=== PATIENT | female | born 2000 | race Caucasian/White ===

== ENCOUNTER 2024-03-01 04:49 | Outpatient (CLI) | payer OTHER | END 2024-03-01 23:38 | disposition critical access hospital (66) | LOC: EMS 04:49 | DX: R06.82 Tachypnea, not elsewhere classified (principal) | CPT/HCPCS: A0425; A0429 ==

== ENCOUNTER 2024-03-01 05:09 | Inpatient (IN) | payer OTHER ==
[2024-03-01] MEDS: LIDOCAINE VISCOUS 2% 15 ML UDC MM STA (05:26)
[2024-03-01] MEDS: MAG HYDROX/AL HYDROX/SIMETH 30 ML UDC PO STA (05:26)
[2024-03-01 05:27] LABS: BASOPHILS # (AUTO) 0.1 10^3/uL (0.0-0.1); BASOPHILS % (AUTO) 0.5 %; EOSINOPHILS # (AUTO) 0.1 10^3/uL (0.0-0.7); EOSINOPHILS % (AUTO) 0.3 %; HGB - HEMOGLOBIN 15.5 g/dL (12.0-16.0); LYMPHOCYTES # (AUTO) 4.6 10^3/uL (1.5-3.5); LYMPHOCYTES % (AUTO) 19.8 %; MEAN CORPUSCULAR HEMOGLOBIN 31.3 pg (27.0-31.0); MEAN CORPUSCULAR HGB CONC 32.3 g/dL (32.0-36.0); MEAN CORPUSCULAR VOLUME 96.8 fL (81.0-99.0); MEAN PLATELET VOLUME 9.6 fL (7.9-10.8); MONOCYTES # (AUTO) 1.4 10^3/uL (0.0-1.0); MONOCYTES % (AUTO) 5.9 %; NEUTROPHILS # (AUTO) 16.7 10^3/uL (1.5-6.6); PLT - PLATELET COUNT 530 10^3/uL (130-450); RED BLOOD COUNT 4.96 10^6/uL (4.20-5.40); RED CELL DISTRIBUTION WIDTH 13.8 % (12.0-15.0); WHITE BLOOD COUNT 23.2 x10^3/uL (4.8-10.8)
--- NOTE | 2024-03-01 05:30 | ED Physician Documentation ---
PD HPI DYSPNEA - Stated complaint Stated Complaint: SOA - Chief complaint Chief Complaint: Resp - History obtained from History obtained from: Patient - Additional information Additional information: 23-year-old female with PMH T2DM on metformin presents by EMS from home for shortness of breath that began just prior to arrival. Patient states that she has had several days of heartburn that she attributes to eating too much pizza after running a marathon. Denies use of hormonal control, denies history of blood clots. Denies recent surgeries or prolonged immobilizations Review of Systems Constitutional: denies: Fever, Chills Cardiac: reports: Chest pain / pressure. denies: Palpitations, Calf pain Respiratory: reports: Dyspnea. denies: Cough, Wheezing GI: denies: Abdominal Pain, Nausea, Vomiting Musculoskeletal: denies: Neck pain, Back pain, Extremity pain Neurologic: denies: Generalized weakness, Focal weakness, Numbness PD PAST MEDICAL HISTORY - Allergies Allergies/Adverse Reactions: Allergies Allergy/AdvReac Type Severity Reaction Status Date / Time No Known Drug Allergies Allergy Verified 03/01/24 05:21 PD ED PE NORMAL - Vitals Vital signs reviewed: Yes - General General: Alert and oriented X 3, Well developed/nourished - Cardiac Cardiac: Strong equal pulses, Other (tachycardia) - Respiratory Respiratory: Clear bilaterally, Other (tachypnea, speaking in complete sentences) - Abdomen Abdomen: Soft, Non tender, Non distended - Derm Derm: Normal color, Warm and dry, No rash - Extremities Extremities: No deformity, No tenderness to palpate, Normal ROM s pain, No edema, No calf tenderness / cord - Neuro Neuro: Alert and oriented X 3, photographic process screen maker 2-12 intact, No motor deficit, Normal speech Results - Vitals Vitals: Vital Signs - 24 hr 03/01/24 03/01/24 05:16 06:30 Temperature 36.6 C Heart Rate 102 H 104 H Respiratory 36 H 33 H Rate Blood Pressure 164/126 H 154/88 H O2 Saturation 100 100 If not protocol 1 : Oxygen Flow, liters/minute Oxygen O2 Source Nasal cannula - Labs Labs: Laboratory Tests 03/01/24 03/01/24 03/01/24 05:05 05:20 05:20 WBC 23.2 H RBC 4.96 Hgb 15.5 Hct 48.0 H MCV 96.8 MCH 31.3 H MCHC 32.3 RDW 13.8 Plt Count 530 H MPV 9.6 Neut # (Auto) 16.7 H Lymph # (Auto) 4.6 H Adair # (Auto) 1.4 H Eos # (Auto) 0.1 Baso # (Auto) 0.1 Absolute Nucleated RBC 0.00 Band Neuts % (Manual) Not Reportable Abnorm Lymph % (Manual) Not Reportable Nucleated RBC % 0.0 Neutrophils # (Manual) Not Reportable Lymphocytes # (Manual) Not Reportable Monocytes # (Manual) Not Reportable Eosinophils # (Manual) Not Reportable Basophils # (Manual) Not Reportable Differential Comment MANUAL=AUTO DIFF Platelet Estimate INCREASED (>450,000) RBC Morph Micro Appear NORMAL APPEARANCE PT INR D-Dimer VBG pH VBG pCO2 VBG pO2 VBG HCO3 VBG Total CO2 VBG O2 Saturation VBG Base Excess Sodium 133 L Potassium 3.8 Chloride 106 Carbon Dioxide 3 L* Anion Gap 24.0 H BUN 8 Creatinine 0.8 Estimated GFR (MDRD) 88 L Glucose 432 H Calcium 8.7 Total Bilirubin 0.5 AST 13 ALT 11 Alkaline Phosphatase 109 Troponin I High Sens Total Protein 7.5 Albumin 4.5 Globulin 3.0 Albumin/Globulin Ratio 1.5 Serum HCG, Qual NEGATIVE Serum Ketones MODERATE H 03/01/24 03/01/24 03/01/24 05:20 05:57 06:05 WBC RBC Hgb Hct MCV MCH MCHC RDW Plt Count MPV Neut # (Auto) Lymph # (Auto) Adair # (Auto) Eos # (Auto) Baso # (Auto) Absolute Nucleated RBC Band Neuts % (Manual) Abnorm Lymph % (Manual) Nucleated RBC % Neutrophils # (Manual) Lymphocytes # (Manual) Monocytes # (Manual) Eosinophils # (Manual) Basophils # (Manual) Differential Comment Platelet Estimate RBC Morph Micro Appear PT 12.1 INR 1.1 D-Dimer > 1050.0 H VBG pH 6.898 L* VBG pCO2 15.6 L VBG pO2 75.1 H VBG HCO3 3.0 L VBG Total CO2 3.5 L VBG O2 Saturation 91.0 H VBG Base Excess -28.8 L Sodium Potassium Chloride Carbon Dioxide Anion Gap BUN Creatinine Estimated GFR (MDRD) Glucose Calcium Total Bilirubin AST ALT Alkaline Phosphatase Troponin I High Sens 6.5 Total Protein Albumin Globulin Albumin/Globulin Ratio Serum HCG, Qual Serum Ketones PD Medical Decision Making - ED course Complexity details: reviewed results, re-evaluated patient, considered differential, d/w patient ED course: Patient presenting for shortness of breath and heartburn. She is tachypneic, breathing approximately 30+ times per minute, but speaking complete sentences, lungs are clear to auscultation bilaterally. Accu-Chek 400. Laboratory work shows WBC count 23, platelets 530, CO2 3, anion gap 24. Patient likely in DKA. Patient states that she is on metformin but it has been "a long time" since her A1c has been checked. She states she has never been on insulin. D-dimer greater than 1000. I do believe that this is most likely related to patient's DKA, however patient is saying that her symptoms only began this morning. With the severity of her acidosis, elevated white blood cell count, it is unlikely that the symptoms just began this morning. CT angio ordered and pending at time of signout. Care of patient signed out to morning physician at 0700 Departure - Departure Clinical Impression: DKA (diabetic ketoacidosis) Condition: Fair Forms: PCP List
[2024-03-01 05:49] LABS: HCG,QUALITATIVE BLOOD NEGATIVE
[2024-03-01] MEDS: SODIUM CHLORIDE 0.9% 1,000 ML IV STA ×3 (05:51→07:50)
[2024-03-01 05:56] LABS: ALBUMIN 4.5 g/dL (3.2-5.5); ALBUMIN/GLOBULIN RATIO 1.5 (1.0-2.2); ALKALINE PHOSPHATASE 109 IU/L (42-121); ALT ALANINE AMINOTRANSFERASE 11 IU/L (10-60); AST ASPARTATE AMINOTRANSFERASE 13 IU/L (10-42); BILIRUBIN,TOTAL 0.5 mg/dL (0.2-1.0); BUN - BLOOD UREA NITROGEN 8 mg/dL (6-20); CALCIUM 8.7 mg/dL (8.5-10.3); CARBON DIOXIDE - CO2 3 mmol/L (21-32); CHLORIDE 106 mmol/L (101-111); CREATININE 0.8 mg/dL (0.6-1.3); GFR - MDRD 88 (>89); GLUCOSE 432 mg/dL (74-104); POTASSIUM 3.8 mmol/L (3.5-4.5); SODIUM 133 mmol/L (135-145); TOTAL PROTEIN 7.5 g/dL (6.4-8.9)
[2024-03-01 06:07] LABS: INR 1.1 (0.8-1.2); PT - PROTHROMBIN TIME 12.1 secs (9.9-12.6)
[2024-03-01 06:11] LABS: VBG BASE EXCESS -28.8 mmol/L (-2 - +2); VBG PCO2 15.6 mmHg (41-51); VBG PO2 75.1 mmHg (25-47); VBG TOTAL CO2 3.5 mmol/L (24-29)
[2024-03-01] MEDS: INSULIN REGULAR IN 0.9 % NS 100 UNIT/100 ML BAG IV STA (06:27)
[2024-03-01] MEDS: INSULIN REGULAR HUMAN 300 UNIT/3 ML VIAL IVP STA (06:29)
[2024-03-01] MEDS: POTASSIUM CHLORIDE INJ 40 MEQ in SODIUM CHLORIDE 0.9% 500 ML IV ONE (06:32)
[2024-03-01 06:33] LABS: VBG PH 6.898 (7.31-7.41)
[2024-03-01 06:36] LABS: DIFFERENTIAL COMMENT MANUAL=AUTO DIFF; PLATELET ESTIMATE, MANUAL INCREASED (>450,000) (NORMAL); RBC MORPHOLOGY (MULTIPLE) NORMAL APPEARANCE (NORMAL)
[2024-03-01 06:43] LABS: D-DIMER > 1050.0 ng/mL (200.0-255.0)
[2024-03-01] MEDS: POTASSIUM CHLOR 10 MEQ/100 ML 10 MEQ/100 ML BAG IV ONE ×4 (06:50→10:45)
[2024-03-01] MEDS ORDERED: iohexoL-300 100 ML VIAL ONE (07:14)
[2024-03-01 07:29] LABS: BILIRUBIN,URINE NEGATIVE (NEGATIVE); GLUCOSE, URINE (UA) 500 mg/dL (NEGATIVE); KETONES,URINE (UA) >=80 mg/dL (NEGATIVE); LEUKOCYTE ESTERASE, URINE NEGATIVE (NEGATIVE); NITRITE,URINE NEGATIVE (NEGATIVE); OCCULT BLOOD,URINE SMALL (NEGATIVE); PH,URINE 5.5 PH (5.0-7.5); PROTEIN,URINE 30 mg/dL (NEGATIVE); UROBILINOGEN,URINE 0.2 (NORMAL) E.U./dL (NORMAL)
[2024-03-01 07:32] LABS: MAGNESIUM 1.9 mg/dL (1.7-2.3)
[2024-03-01 07:53] LABS: CLARITY,URINE SL. CLOUDY (CLEAR)
--- NOTE | 2024-03-01 08:23 | CT Report ---
PROCEDURE: Angio Chest INDICATIONS: DYSPNEA, ELEVATED D-DIMER CONTRAST: Omni 300 80ml TECHNIQUE: After the administration of intravenous contrast, 2 mm axial images were acquired from the pulmonary apices to the posterior costophrenic angles during the arterial phase. In addition, 1 mm lung kernel and 5 mm soft tissue kernel reconstructions were performed. 3-dimensional coronal oblique maximum int ensity projection (MIP) reformats, 8 mm axial MIP, and 5 mm coronal and sagittal MPR reformats were t hen performed through the thorax. For radiation dose reduction, the following was used: automated exp osure control, adjustment of mA and/or kV according to patient size. COMPARISON: CXR earlier today. FINDINGS: Image quality: Excellent. Large vessels: No filling defects within the opacified pulmonary arteries, accounting for motion and contrast timing. No evidence of acute aortic syndrome or aortic aneurysm. No aortic dissection. Lungs and pleura: No consolidation. No pleural effusions. No pneumothorax. No suspicious pulmonary no dules which require follow up. The central airways are clear. Mediastinum: Heart size is normal. No pericardial effusion. No large vessel abnormality. No mediastin al adenopathy by size criteria. The esophagus is fluid-filled. Chest wall and lower neck: Thyroid is unremarkable. No axillary or supraclavicular adenopathy by size . Bones: No aggressive osseous abnormality. Upper Abdomen: The visualized portions of the stomach are fluid-filled. IMPRESSION: 1. No pulmonary embolism. No aortic dissection. 2. Lungs are clear. Central airways are clear. 3. The esophagus is fluid-filled. The visualized portions of the stomach are fluid-filled. This could be seen in bowel or gastric obstruction. Other esophageal pathology such as achalasia is also a diag nostic consideration. Results were communicated to Dr. Trevor Camacho at 03/01/2024 8:15 AM PDT. Reviewed by: Andrew Correa MD on 03/01/2024 8:21 AM PDT Approved by: Andrew Correa MD on 03/01/2024 8:21 AM PDT Station ID: [id number]
--- NOTE | 2024-03-01 08:23 | XRAY Report ---
PROCEDURE: Chest 1V INDICATIONS: DYSPNEA/CP TECHNIQUE: One view of the chest was acquired. COMPARISON: None. FINDINGS: Surgical changes and devices: None. Lungs and pleura: No pleural effusions or pneumothorax. Lungs are clear. Mediastinum: Mediastinal contours appear normal. Heart size is normal. Bones and chest wall: No suspicious bony lesions. Overlying soft tissues appear unremarkable. IMPRESSION: No acute cardiopulmonary process. Findings are concordant with preliminary interpretation provided by [facility]. Reviewed by: Dedrick Frausto MD on 03/01/2024 8:22 AM PDT Approved by: Dedrick Frausto MD on 03/01/2024 8:22 AM PDT Station ID: [id number]
[2024-03-01] MEDS: iohexoL-300 100 ML VIAL IVP ONE (09:20)
[2024-03-01] MEDS: LORazepam 2 MG/ML VIAL IVP STA (09:35)
[2024-03-01 09:40] LABS: MAGNESIUM 1.8 mg/dL (1.7-2.3); PHOSPHORUS 2.1 mg/dL (2.5-5.0)
[2024-03-01 09:42] LABS: CALCIUM 8.3 mg/dL (8.5-10.3); CREATININE 0.7 mg/dL (0.6-1.3); POTASSIUM 2.9 mmol/L (3.5-4.5)
[2024-03-01 09:47] LABS: AMPHETAMINE SCREEN,URINE NEGATIVE (NEGATIVE); BARBITURATE SCREEN,UR NEGATIVE (NEGATIVE); BENZODIAZEPINES SCREEN, URINE NEGATIVE (NEGATIVE); BUPRENORPHINE SCREEN, URINE NEGATIVE (NEGATIVE); COCAINE SCREEN URINE NEGATIVE (NEGATIVE); METHADONE SCREEN, URINE NEGATIVE (NEGATIVE); METHAMPHETAMINES SCREEN, URINE NEGATIVE (NEGATIVE); OPIATE SCREEN, URINE NEGATIVE (NEGATIVE); OXYCODONE SCREEN, URINE NEGATIVE (NEGATIVE); THC CANNABINOID SCREEN, URINE NEGATIVE (NEGATIVE); TRICYCLIC ANTIDEPRESSANT,URINE NEGATIVE (NEGATIVE)
[2024-03-01 09:48] LABS: BACTERIA,URINE Moderate /HPF (None Seen); RBC,URINE 0-5 /HPF (0-5); SQUAMOUS EPITHELIAL CELL,UR MANY Squamous (<= Few)
[2024-03-01] MEDS ORDERED: DEXTROSE 5%-0.9% NACL 1,000 ML IV STA (09:55)
[2024-03-01 09:59] LABS: B. PARAPERTUSSIS- RESP PCR PAN NOT DETECTED; B. PERTUSSIS- RESP PCR PANEL NOT DETECTED; C. PNEUMONIAE- RESP PCR PANEL NOT DETECTED; CORONAVIRUS 229E-RESP PCR NOT DETECTED; CORONAVIRUS HKU1-RESP PCR NOT DETECTED; CORONAVIRUS NL63-RESP PCR NOT DETECTED; CORONAVIRUS OC43-RESP PCR NOT DETECTED; HUMAN METAPNEUMOVIRUS NOT DETECTED; INFLUENZA A- RESP PCR PANEL NOT DETECTED; INFLUENZA B - RESP PCR PANEL NOT DETECTED; M. PNEUMONIAE- RESP PCR PANEL NOT DETECTED; PARAINFLUENZA VIRUS 1 NOT DETECTED; PARAINFLUENZA VIRUS 2 NOT DETECTED; PARAINFLUENZA VIRUS 3 NOT DETECTED; PARAINFLUENZA VIRUS 4 NOT DETECTED; RHINOVIRUS/ENTEROVIRUS NOT DETECTED; RSV- RESP PCR PANEL NOT DETECTED; SARS-CoV-2 -RESP PCR PANEL NOT DETECTED
[2024-03-01] MEDS ORDERED: POTASSIUM CHLORIDE INJ 20 MEQ in DEXTROSE 5%-0.9% NACL 1,000 ML IV STA (10:04)
[2024-03-01 10:24] LABS: VBG BASE EXCESS -30.9 mmol/L (-2 - +2); VBG PCO2 27.7 mmHg (41-51); VBG PO2 43.1 mmHg (25-47); VBG TOTAL CO2 4.8 mmol/L (24-29)
[2024-03-01 10:27] LABS: VBG PH 6.774 (7.31-7.41)
[2024-03-01 10:29] LABS: VBG OXYGEN SATURATION 76.8 % (60-80)
[2024-03-01] MEDS: DEXTROSE-SOD CHLOR W/20 MEQ K 1,000 ML IV STA (10:37)
--- NOTE | 2024-03-01 11:06 | HISTORY & PHYSICAL EXAMINATION ---
History of Present Illness - Admitted From Admitted From:: Emergency Room - History Obtained From Records Reviewed: Yes History obtained from: Patient and Emergency Room Physician Dr. Trevor Camacho - History of Present Illness HPI Comment/Other: Aime Galdamez is a 23-year-old woman with a history of type 2 diabetes mellitus. Patient reports she complained of shortness of breath while driving from her home to the [place] area. She reports she recently ran a marathon. Laboratory workup upon arrival revealed an anion gap of 24 with a creatinine of 0.8 and a serum glucose of 432. Treatment was initiated in the emergency room with IV fluids and insulin drip. Patient complaining of diffuse pain. She denies any fevers and chills. History - POLST Patient has POLST: No POLST Status: Full Code Meds/Allgy - Home Medications Home Medications: Ambulatory Orders Medication Instructions Recorded Confirmed No Known Home Medications 03/01/24 03/01/24 - Allergies Allergies/Adverse Reactions: Allergies Allergy/AdvReac Type Severity Reaction Status Date / Time No Known Drug Allergies Allergy Verified 03/01/24 05:21 Review of Systems - Constitutional Constitutional: reports: Fatigue, Weakness, Poor appetite - Respiratory Respiratory: reports: SOB at rest - Gastrointestinal Gastrointestinal: reports: Abdominal pain Exam - Vital Signs Vital Signs: Vital Signs x48h Temp Pulse Resp BP Pulse Ox O2 Flow Rate 03/01/24 10:00 35.8 C L 104 H 31 H 100 1 03/01/24 08:00 100 35 H 143/96 H 100 1 03/01/24 06:30 104 H 33 H 154/88 H 100 1 03/01/24 05:16 36.6 C 102 H 36 H 164/126 H 100 - Physical Exam General Appearance: positive: No acute distress, Alert Eyes Bilateral: positive: Conjunctivae nml Neck: positive: No JVD, Trachea midline Respiratory: positive: Other (Good air exchange in all lung pedroza no wheezing no crackles.) Cardiovascular: positive: Other (Positive S1-S2 no extra heart sounds.) Abdomen: positive: Other (Soft, positive bowel sounds mild tenderness on palpation.) Skin: positive: No rash Extremities: positive: No pedal edema Neurologic/Psychiatric: positive: Oriented x3, Motor nml Conclusion/Plan - Problem List (1) DKA (diabetic ketoacidosis) Conclusion/Plan: Initial pH on VBG is 6.89. Patient has severe diabetic ketoacidosis which is life-threatening. Plan is to admit her to the intensive care unit for close hemodynamic monitoring. Treatment will continue with fluid hydration, frequent monitoring of electrolytes and an insulin drip. The diabetic ketoacidosis protocol has been initiated. Patient has a life-threatening condition and warrants admission to an intensive care unit. Total time spent obtaining history, examining the patient, writing orders and reviewing labs is 42 minutes. Qualifiers: Diabetes mellitus type: type 2 Diabetes mellitus complication detail: without coma Qualified Code(s): E11.10 - Type 2 diabetes mellitus with ketoacidosis without coma - Lab Results Fish Bones: 03/01/24 05:20 03/01/24 21:16
[2024-03-01 11:49] LABS: MAGNESIUM 1.7 mg/dL (1.7-2.3)
[2024-03-01] MEDS: NS W/20 MEQ KCL 1,000 ML IV SCH (11:58)
[2024-03-01 12:42] LABS: CALCIUM, IONIZED 1.12 mmol/L (1.15-1.33)
[2024-03-01 12:43] LABS: VBG PH 6.848 (7.31-7.41)
[2024-03-01 12:55] LABS: BILIRUBIN,URINE NEGATIVE (NEGATIVE); GLUCOSE, URINE (UA) 500 mg/dL (NEGATIVE); KETONES,URINE (UA) >=80 mg/dL (NEGATIVE); LEUKOCYTE ESTERASE, URINE NEGATIVE (NEGATIVE); NITRITE,URINE NEGATIVE (NEGATIVE); OCCULT BLOOD,URINE SMALL (NEGATIVE); PH,URINE 5.5 PH (5.0-7.5); PROTEIN,URINE TRACE mg/dL (NEGATIVE); UROBILINOGEN,URINE 0.2 (NORMAL) E.U./dL (NORMAL)
[2024-03-01 12:56] LABS: MAGNESIUM 1.7 mg/dL (1.7-2.3); PHOSPHORUS 1.6 mg/dL (2.5-5.0)
[2024-03-01 12:59] LABS: CLARITY,URINE CLEAR (CLEAR); HCG UR QUAL NEGATIVE
[2024-03-01 13:05] LABS: CALCIUM 8.1 mg/dL (8.5-10.3); CREATININE 0.6 mg/dL (0.6-1.3); POTASSIUM 3.2 mmol/L (3.5-4.5)
[2024-03-01 13:21] LABS: BACTERIA,URINE Few /HPF (None Seen); RBC,URINE 0-5 /HPF (0-5); SQUAMOUS EPITHELIAL CELL,UR FEW Squamous (<= Few)
--- NOTE | 2024-03-01 14:06 | ANESTHESIA PROCEDURE NOTE ---
Anesth Central Line Template - Central Line Central Line Preparation: Consent Obtained, Time out completed, Ultrasound used, Sterile prep and drape Central line location: Left Brachial Central line type: PICC Double Lumen (5Fr) Central line catheter tip site resides: Superior vena cava (SVC) Central line aftercare: Secured, Placement confirmed, No complications, Pt tolerated well Other Info/Details: After consent obtained, left arm prepped and draped in sterile fashion. Full sterile gown, gloves and mask utilized. The left upper arm was localized with 5ml of 1% lidocaine and the left brachial vein was accessed with 20G introducer needle. The wire advanced with ease and a peel-away sheath was inserted. The PICC was trimmed to 46cm and introduced. Tip tracking indicated the tip was adv ancing to the heart. Teleflex ECG tracing indicated the tip of the PICC was in the lower 1/3 SVC with 1cm exposed. Both lines aspirate and flush with ease. Line was secured.
--- NOTE | 2024-03-01 14:06 | PHARMACY PROGRESS NOTE ---
- Best Possible Medication History Admit Date and Time: 03/01/24 1048 Processed by: Pharmacy Medications reviewed in ED?: No Medication History completed: Yes Patient Interview: Pt unable to participate Secondary Source(s): Insurance records (PT UNABLE TO PARTICIPATE BUT WAS ABLE TO CONFIRM NO HOME MEDS.) As the person ultimately responsible for medication therapy, providers are able to order a medication from an existing home medication list in [facility] via the "Reconcile Routine" prior to Confirmation of that medication by pc support specialist. Such practice is discouraged except when the physician, in their clinical ju dgment, deems that a medical need exists for a medication without regard to previous use.
[2024-03-01] MEDS: CALCIUM GLUC 1,000MG/50ML-NACL 1,000 MG/50 ML BAG IV ONE (14:11)
[2024-03-01] MEDS: MAGNESIUM SULFATE 2 GRAM 2 GM/50 ML BAG IV ONE (14:16)
[2024-03-01] MEDS: INSULIN REGULAR HUMAN 100 UNIT in SODIUM CHLORIDE 0.9% 100ML 99 ML IV SCH (14:25)
[2024-03-01] MEDS ORDERED: LACTATED RINGERS 1,000 ML IV SCH (15:00)
[2024-03-01] MEDS: POTASSIUM PHOSPHATE 15 MMOL in SODIUM CHLORIDE 0.9% 250 ML IV ONE (15:13)
[2024-03-01] MEDS: ACETAMINOPHEN 325 MG TABLET PO PRN (16:19)
[2024-03-01] MEDS: SODIUM CHLORIDE FLUSH 0.9% 10 ML SYRINGE IVP SCH (16:23)
[2024-03-01] MEDS: DEXTROSE 5%-LACTATED RINGERS 1,000 ML IV SCH (16:34)
[2024-03-01 17:20] LABS: CALCIUM, IONIZED 1.1 mmol/L (1.15-1.33)
[2024-03-01 17:22] LABS: VBG PH 6.965 (7.31-7.41)
[2024-03-01] MEDS: CALCIUM CARBONATE CHEW 500 MG TABLET PO SCH (17:36)
[2024-03-01 17:49] LABS: CALCIUM 8.2 mg/dL (8.5-10.3); CREATININE 0.5 mg/dL (0.6-1.3); POTASSIUM 3.6 mmol/L (3.5-4.5)
[2024-03-01] MEDS: HYDROcod/ACETAM 5/325 MG TABLET PO PRN (18:54)
[2024-03-01] MEDS: HEPARIN 5,000 UNIT/ML VIAL SUBQ SCH (21:35)
[2024-03-01 21:39] LABS: PHOSPHORUS 1.1 mg/dL (2.5-5.0)
--- NOTE | 2024-03-01 22:57 | ED Physician Documentation ---
ED Addendum - Addendum Addendum: 03/01/24 22:46 Care of the patient at change of shift. Pt with prior Dx diabetes on Metformin. Now with apparent new onset DKA with hyperglycemia. No recent illness. 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 Was feeling weak and ill the past several days/week, and then onset of nausea and vomiting, worse weakness overnight. Seen here this morning with noted DKA. Had abrupt feeling dyspnea last night too and is ta chypneic to point of also hyperventilating and not just the DKA, so CT chest ordered just at change of shift. The patient did get the study and report and verbal from Radiologist was no PE. Noted was fluid in stomach and esophagus, suggesting potential NG tube. Clinically though the patient was not having nausea and abd not tednerness. Minimal bowel sounds so presume some ileus causing CT finding of fluid backup. Pt not feeling nauseated at this time. Deferred NG tube unless vomiting or inconsolable nausea/bloating, which is not the case at the moment. She iss continuing to have fast breathing rate and feeling dyspnea/lightheaded. Sats are 100% and lungs sound clear. CT resulted showing no PE nor infiltrates nor PTX. Presume hyperventilating on top of the DKA motivated tachypnea. There was s brief FluGen system failurefor about 1 1/2 hours leading to less efficient ordering and results of K,Glucose, repeat VBG during the time. We did have FSBS that showed drop in BS to 286 from 400 so the insulin drip cut in half per drip protocol. Repeat K was also lower at 2.8. I started D5-NS with 20 mEq Kcl for the patient. I also gave Ativan dose IV as I feel she has level of anxiousness with this. Her breathing did improve. She is now going down to the med-surg unit and will defer further treatment to Dr. Starks. repeat VBG was showing worse pH though with now 6.8. Continuing IV fluids, insulin drip and fluids with lytes. Critical care time spent in managing IV solutions, meds, evaluating labs and decision points of titrating IV fluids/drips, with reassess patient, and cons ultation for hospitalization, totaling 48 minutes. 03/01/24 22:57
[2024-03-01] MEDS: NEUTRA-PHOS 250 MG TABLET PO SCH (23:10)
[2024-03-02 00:04] LABS: CALCIUM 8.9 mg/dL (8.5-10.3); CREATININE 0.6 mg/dL (0.6-1.3); POTASSIUM 3.3 mmol/L (3.5-4.5)
[2024-03-02 00:05] LABS: CALCIUM 8.8 mg/dL (8.5-10.3); CREATININE 0.5 mg/dL (0.6-1.3); POTASSIUM 3.1 mmol/L (3.5-4.5)
[2024-03-02] MEDS: LACTATED RINGERS 1,000 ML IV ONE ×2 (00:24→00:35)
--- NOTE | 2024-03-02 00:25 | PROVIDER PROGRESS NOTE ---
Demolitionist Note - Demolitionist Note Demolitionist Note: per rn - "Pt admitted for DKA; HR 120s - low 130s, RR 25-35 in the past 15-20minutes . Temp 36.6, O2 sat 100% on RA. No c/o CP, but c/o difficulty breathing. Insulin off since 2129 d/t K 3.0 (currently being replaced PO). Critical lab value CO2 is 5 (drawn at 2330)." bicarb 150 mEQ LR bolus 1L unable to reach rn via phone to discuss above
[2024-03-02] MEDS: SODIUM BICARBONATE 150 MEQ in DEXTROSE 5% 1,000 ML IV SCH (01:27)
[2024-03-02] MEDS: LORazepam 2 MG/ML VIAL IVP STA (04:31)
[2024-03-02 04:39] LABS: BASOPHILS % (AUTO) 0.2 %; HCT - HEMATOCRIT 40.5 % (37.0-47.0); HGB - HEMOGLOBIN 13.6 g/dL (12.0-16.0); LYMPHOCYTES # (AUTO) 1.1 10^3/uL (1.5-3.5); LYMPHOCYTES % (AUTO) 5.5 %; MEAN CORPUSCULAR HEMOGLOBIN 31.1 pg (27.0-31.0); MEAN CORPUSCULAR HGB CONC 33.6 g/dL (32.0-36.0); MEAN CORPUSCULAR VOLUME 92.5 fL (81.0-99.0); MEAN PLATELET VOLUME 8.9 fL (7.9-10.8); MONOCYTES # (AUTO) 1.5 10^3/uL (0.0-1.0); NEUTROPHILS # (AUTO) 16.2 10^3/uL (1.5-6.6); NEUTROPHILS % (AUTO) 85.6 %; PLT - PLATELET COUNT 361 10^3/uL (130-450); RED BLOOD COUNT 4.38 10^6/uL (4.20-5.40); RED CELL DISTRIBUTION WIDTH 13.8 % (12.0-15.0); WHITE BLOOD COUNT 18.9 x10^3/uL (4.8-10.8)
[2024-03-02 04:53] LABS: ABG HCO3 8.3 mmol/L (22.0-26.0); ABG PCO2 22 mmHg (34-45); ABG PH 7.19 (7.35-7.45); ABG PO2 77 mmHg (80-100)
[2024-03-02 04:53] LABS: CALCIUM, IONIZED 1.25 mmol/L (1.15-1.33)
[2024-03-02 04:54] LABS: ABG BASE EXCESS -17.9 mmol/L (-2.0-3.0); ABG OXYGEN SATURATION 97 % (94-98)
[2024-03-02 04:56] LABS: VBG PH 7.18 (7.31-7.41)
[2024-03-02 04:56] LABS: ALLEN TEST POSITIVE
[2024-03-02 05:10] LABS: MAGNESIUM 1.6 mg/dL (1.7-2.3)
[2024-03-02 05:12] LABS: CALCIUM 8.8 mg/dL (8.5-10.3); CREATININE 0.5 mg/dL (0.6-1.3); PHOSPHORUS < 1.0 mg/dL (2.5-5.0); POTASSIUM 2.2 mmol/L (3.5-4.5)
[2024-03-02 06:01] LABS: DIFFERENTIAL COMMENT MANUAL=AUTO DIFF; PLATELET ESTIMATE, MANUAL NORMAL (130-450,000) (NORMAL); RBC MORPHOLOGY (MULTIPLE) NORMAL APPEARANCE (NORMAL)
[2024-03-02] MEDS: POTASSIUM PHOSPHATE 15 MMOL in SODIUM CHLORIDE 0.9% 250 ML IV SCH (06:17)
[2024-03-02] MEDS: MAGNESIUM OXIDE 400 MG TABLET PO ONE (07:05)
[2024-03-02] MEDS: LACTATED RINGERS 500 ML IV ONE (07:51)
--- NOTE | 2024-03-02 08:10 | XRAY Report ---
PROCEDURE: Chest 1V INDICATIONS: sob TECHNIQUE: One view of the chest was acquired. COMPARISON: 03/01/2024. FINDINGS: Surgical changes and devices: Left-sided PICC line tip is in SVC. Lungs and pleura: No pleural effusions or pneumothorax. Subtle increased opacities at bilateral lung bases are seen concerning for focal infiltrate versus atelectasis.. Mediastinum: Mediastinal contours appear normal. Heart size is normal. Bones and chest wall: No suspicious bony lesions. Overlying soft tissues appear unremarkable. IMPRESSION: Left-sided PICC line tip is in SVC. Suggestion of subtle infiltrate versus atelectasis at bilateral l gene bases. No pleural effusion or pneumothorax. Findings are concordant with preliminary interpretation provided by [facility]. Reviewed by: Dedrick Frausto MD on 03/02/2024 8:09 AM PDT Approved by: Dedrick Frausto MD on 03/02/2024 8:09 AM PDT Station ID: [id number]
[2024-03-02] MEDS: BENZOCAINE/MENTHOL LOZENGE MM PRN (09:11)
[2024-03-02 09:34] LABS: CALCIUM 9.1 mg/dL (8.5-10.3); CREATININE 0.6 mg/dL (0.6-1.3); POTASSIUM 2.6 mmol/L (3.5-4.5)
[2024-03-02] MEDS: POTASSIUM CHLORIDE 20 MEQ/15 ML UDC PO ONE (10:40)
[2024-03-02] MEDS: LACTATED RINGERS 1,000 ML IV SCH (10:43)
[2024-03-02] MEDS: PANTOPRAZOLE 40 MG TABLET PO SCH (11:36)
[2024-03-02] MEDS: POTASSIUM CHLOR 20 MEQ/100 ML 20 MEQ/100 ML BAG IV ONE ×4 (11:40→20:06)
[2024-03-02 12:38] LABS: BUN - BLOOD UREA NITROGEN 3 mg/dL (6-20); CARBON DIOXIDE - CO2 2 mmol/L (21-32); CHLORIDE 111 mmol/L (101-111); CREATININE < 0.2 mg/dL (0.6-1.3); GLUCOSE 172 mg/dL (74-104); POTASSIUM 3.7 mmol/L (3.5-4.5); SODIUM 136 mmol/L (135-145)
[2024-03-02] MEDS: MAGNESIUM SULFATE 2 GRAM 2 GM/50 ML BAG IV SCH (12:58)
[2024-03-02] MEDS: SODIUM CHLORIDE 0.9% 500 ML IV ONE (14:56)
[2024-03-02 16:14] LABS: CALCIUM, IONIZED 1.2 mmol/L (1.15-1.33)
[2024-03-02 16:15] LABS: MAGNESIUM 2.3 mg/dL (1.7-2.3)
[2024-03-02 16:17] LABS: CREATININE 0.6 mg/dL (0.6-1.3); POTASSIUM 2.6 mmol/L (3.5-4.5); VBG PH 7.076 (7.31-7.41)
[2024-03-02] MEDS: POTASSIUM CHLOR 20 MEQ/100 ML 20 MEQ/100 ML BAG IV SCH ×2 (18:21→21:41)
[2024-03-02] MEDS: SODIUM PHOSPHATE 21 MMOL in SODIUM CHLORIDE 0.9% 250 ML IV ONE (18:42)
--- NOTE | 2024-03-02 20:08 | PROVIDER PROGRESS NOTE ---
Assessment/Plan - Problem List (1) DKA (diabetic ketoacidosis) Qualifiers: Diabetes mellitus type: type 2 Diabetes mellitus complication detail: without coma Qualified Code(s): E11.10 - Type 2 diabetes mellitus with ketoacidosis without coma Assessment/Plan: Patient continues to have life-threatening severe diabetic ketoacidosis. Throughout much of the day she was not able to be on insulin because of electrolyte abnormalities. Her potassium has been low. Nursing staff was following the protocol and her insulin drip was at approximately 11 units/h. Plan is to stop using the protocol and follow the [place] [employer] recommendations of 0.05 units/kg/h. We will start with a dose of 2 units/h. Sh e will receive the dextrose solution to maintain a serum glucose between [id number]. Continue fluid hydration with lactated Ringer's. Continue to monitor electrolytes closely and replace as needed. (2) Hypokalemia Assessment/Plan: Replace as needed. (3) Hypophosphatemia Assessment/Plan: Replace as needed. (4) Hypomagnesia Assessment/Plan: Replace as needed. Total time spent at patient bedside, writing orders, evaluating labs, discussion with patient and family and examining patient is 38 minutes. - Current Meds Current Meds: Current Medications Generic Name Dose Route Start Last Admin Trade Name Freq PRN Reason Stop Dose Admin Acetaminophen 650 mg 03/01/24 16:15 03/02/24 12:15 Acetaminophen 325 Mg Tablet PO 650 mg Q4HR PRN Administration Pain or Fever > 38C (100.4F) Hydrocodone Bitart/Acetaminophen 1 tab 03/01/24 18:48 03/02/24 20:02 Hydrocod/Acetam 5/325 Mg Tablet PO 1 tab Q4HR PRN Administration Moderate Pain (Level 4-6) Heparin Sodium (Porcine) 5,000 unit 03/01/24 21:00 03/02/24 08:56 Heparin 5,000 Unit/Ml Vial SUBQ 5,000 unit BID LAURA Administration Insulin Human Regular 100 unit 100 mls @ 5 mls/hr 03/01/24 14:00 03/02/24 16:20 / Sodium Chloride IV 0 unit/hr .Q20H LAURA 0 mls/hr Titration Protocol 5 UNIT/HR Dextrose/Lactated Ringer's 1,000 mls @ 150 mls/hr 03/01/24 17:00 03/02/24 16:43 D5lr IV 0 mls/hr .Q6H40M LAURA Infusion Lactated Ringer's 1,000 mls @ 250 mls/hr 03/02/24 11:00 03/02/24 18:51 Lr IV 250 mls/hr .Q4H LAURA Administration Sodium Phosphate 21 mmol/ 257 mls @ 64.25 mls/hr 03/02/24 19:30 03/02/24 18:42 Sodium Chloride IV 03/02/24 23:29 64.25 mls/hr ONCE ONE Administration Protocol Pantoprazole Sodium 40 mg 03/02/24 12:00 03/02/24 11:36 Pantoprazole 40 Mg Tablet PO 40 mg QDAC LAURA Administration Sodium Chloride 10 ml 03/01/24 17:00 03/02/24 16:24 Sodium Chloride Flush 0.9% 10 Ml Syringe IVP 10 ml 0100,0900,1700 LAURA Administration Throat Lozenges 1 lozenge 03/02/24 10:00 03/02/24 18:51 Benzocaine/Menthol Lozenge MM 1 lozenge Q2HR PRN Administration Throat pain - Lab Result Fish Bone Diagrams: 03/02/24 04:30 03/02/24 20:00 - Additional Planning My Orders: My Active Orders 03/01/24 21:00 Heparin [Heparin Sodium (Porcine)] 5,000 unit SUBQ BID 03/02/24 10:00 Benzocaine/Menthol [Cepacol] 1 lozenge MM Q2HR PRN 03/02/24 10:14 Miscellaenous Nursing Order [RC] DAILY 03/02/24 11:00 Lactated Ringers [Lr] 1,000 ml IV 250 mls/hr 03/02/24 12:00 Pantoprazole [Protonix] 40 mg PO QDAC 03/02/24 16:36 Miscellaenous Nursing Order [RC] ONCE 03/02/24 19:30 Sodium Phosphate 21 mmol Sodium Chloride 0.9% [Normal Saline 0.9%] 250 ml IV ONCE 03/02/24 20:00 BMP - BASIC METABOLIC PANEL [CHEM] Timed Potassium Chlor 20 Meq/100 ml [Potassium Chloride] 20 meq in 100 ml IV ONCE Subjective - Subjective Patient Reports: Other (Alert. Continues to complain of fatigue. Abdominal pain improved. No other complaints at this time.) Objective Vital Signs: Vital Signs - 24 hr 03/01/24 03/01/24 03/01/24 21:00 22:00 23:00 Temperature Heart Rate [ 103 H 104 H 118 H Monitoring electrodes] Respiratory 34 H 27 H 41 H Rate Blood Pressure 135/86 H 129/88 H 129/88 H [Right Brachial artery] O2 Saturation 100 100 100 03/02/24 03/02/24 03/02/24 00:00 01:00 02:00 Temperature 37.0 C Heart Rate [ 128 H 115 H 108 H Monitoring electrodes] Respiratory 39 H 33 H 27 H Rate Blood Pressure 153/96 H 157/93 H 145/86 H [Right Brachial artery] O2 Saturation 99 100 100 03/02/24 03/02/24 03/02/24 03:00 04:00 05:00 Temperature Heart Rate [ 131 H 129 H 126 H Monitoring electrodes] Respiratory 34 H 26 H 24 Rate Blood Pressure 153/98 H 158/94 H 123/71 [Right Brachial artery] O2 Saturation 97 97 96 03/02/24 03/02/24 03/02/24 06:00 07:00 08:00 Temperature 36.6 C Heart Rate [ 126 H 117 H 120 H Monitoring electrodes] Respiratory 28 H 26 H 29 H Rate Blood Pressure 136/86 H 145/87 H 129/77 [Right Brachial artery] O2 Saturation 95 96 98 03/02/24 03/02/24 03/02/24 09:00 10:00 11:00 Temperature 37.1 C Heart Rate [ 128 H 112 H 120 H Monitoring electrodes] Respiratory 35 H 28 H 31 H Rate Blood Pressure 141/87 H 139/95 H 135/72 H [Right Brachial artery] O2 Saturation 100 100 100 03/02/24 03/02/24 03/02/24 12:00 13:00 15:00 Temperature Heart Rate [ 132 H 115 H 108 H Monitoring electrodes] Respiratory 31 H 29 H 27 H Rate Blood Pressure 135/73 H 145/77 H 134/87 H [Right Brachial artery] O2 Saturation 100 100 100 03/02/24 03/02/24 03/02/24 16:00 17:00 18:00 Temperature 36.8 C Heart Rate [ 115 H 118 H 118 H Monitoring electrodes] Respiratory 36 H 28 H 32 H Rate Blood Pressure 131/96 H 130/84 H 117/73 [Right Brachial artery] O2 Saturation 100 100 100 03/02/24 19:00 Temperature Heart Rate [ 117 H Monitoring electrodes] Respiratory 35 H Rate Blood Pressure 136/84 H [Right Brachial artery] O2 Saturation 100 Oxygen O2 Source Room air I&O (Last 24 Hrs): Intake and Output Totals x24h 02/29/24 03/01/24 03/02/24 23:59 23:59 23:59 Intake Total 6043.592 7371.374 Output Total 4750 5900 Balance 3394.809 7135.374 General: Alert, Oriented x3, No acute distress Neck: No JVD, No thyromegaly Neuro: Alert, Non Focal Cardiovascular: Other (Positive S1-S2 no extra heart sounds.) Respiratory: Other (Good air exchange in all lung pedroza no wheezing no crackles.) Extremities: No cyanosis, No edema Skin: No rashes - Results Results: Laboratory Results WBC 18.9 x10^3/uL (4.8-10.8) H 03/02/24 04:30 RBC 4.38 10^6/uL (4.20-5.40) 03/02/24 04:30 Hgb 13.6 g/dL (12.0-16.0) 03/02/24 04:30 Hct 40.5 % (37.0-47.0) 03/02/24 04:30 MCV 92.5 fL (81.0-99.0) 03/02/24 04:30 MCH 31.1 pg (27.0-31.0) H 03/02/24 04:30 MCHC 33.6 g/dL (32.0-36.0) 03/02/24 04:30 RDW 13.8 % (12.0-15.0) 03/02/24 04:30 Plt Count 361 10^3/uL (130-450) 03/02/24 04:30 MPV 8.9 fL (7.9-10.8) 03/02/24 04:30 Neut # (Auto) 16.2 10^3/uL (1.5-6.6) H 03/02/24 04:30 Lymph # (Auto) 1.1 10^3/uL (1.5-3.5) L 03/02/24 04:30 [place] # (Auto) 1.5 10^3/uL (0.0-1.0) H 03/02/24 04:30 Eos # (Auto) 0.0 10^3/uL (0.0-0.7) 03/02/24 04:30 Baso # (Auto) 0.0 10^3/uL (0.0-0.1) 03/02/24 04:30 Absolute Nucleated RBC 0.00 x10^3/uL 03/02/24 04:30 Band Neuts % (Manual) Not Reportable 03/02/24 04:30 Abnorm Lymph % (Manual) Not Reportable 03/02/24 04:30 Nucleated RBC % 0.0 /100WBC 03/02/24 04:30 Neutrophils # (Manual) Not Reportable 03/02/24 04:30 Lymphocytes # (Manual) Not Reportable 03/02/24 04:30 Monocytes # (Manual) Not Reportable 03/02/24 04:30 Eosinophils # (Manual) Not Reportable 03/02/24 04:30 Basophils # (Manual) Not Reportable 03/02/24 04:30 Differential Comment MANUAL=AUTO DIFF 03/02/24 04:30 Platelet Estimate NORMAL (130-450,000) (NORMAL) 03/02/24 04:30 RBC Morph Micro Appear NORMAL APPEARANCE (NORMAL) 03/02/24 04:30 PT 12.1 secs (9.9-12.6) 03/01/24 05:57 INR 1.1 (0.8-1.2) 03/01/24 05:57 D-Dimer > 1050.0 ng/mL (200.0-255.0) H 03/01/24 05:57 Bld Gas Analysis Time 0451 03/02/24 04:45 Sample Site LEFT RADIAL 03/02/24 04:45 ABG pH 7.19 (7.35-7.45) L* 03/02/24 04:45 ABG pCO2 22 mmHg (34-45) L* 03/02/24 04:45 ABG pO2 77 mmHg (80-100) L 03/02/24 04:45 ABG HCO3 8.3 mmol/L (22.0-26.0) L 03/02/24 04:45 ABG Total CO2 9.0 MMOL/L (21.0-29.0) L* 03/02/24 04:45 ABG O2 Saturation 97 % (94-98) 03/02/24 04:45 ABG Base Excess -17.9 mmol/L (-2.0-3.0) L 03/02/24 04:45 Robb Test POSITIVE 03/02/24 04:45 VBG pH 7.076 (7.31-7.41) L* 03/02/24 15:56 VBG pCO2 27.7 mmHg (41-51) L 03/01/24 10:17 VBG pO2 43.1 mmHg (25-47) 03/01/24 10:17 VBG HCO3 4.0 mmol/L (23-28) L 03/01/24 10:17 VBG Total CO2 4.8 mmol/L (24-29) L 03/01/24 10:17 VBG O2 Saturation 76.8 % (60-80) 03/01/24 10:17 VBG Base Excess -30.9 mmol/L (-2 - +2) L 03/01/24 10:17 Ionized Calcium 1.20 mmol/L (1.15-1.33) 03/02/24 15:56 Room Air YES 03/02/24 04:45 FiO2 21.00 03/02/24 04:45 Sodium 143 mmol/L (135-145) 03/02/24 15:56 Potassium 3.0 mmol/L (3.5-4.5) L 03/02/24 17:30 Chloride 117 mmol/L (101-111) H 03/02/24 15:56 Carbon Dioxide 6 mmol/L (21-32) L* 03/02/24 15:56 Anion Gap 20.0 (6-13) H 03/02/24 15:56 BUN 7 mg/dL (6-20) 03/02/24 15:56 Creatinine 0.6 mg/dL (0.6-1.3) 03/02/24 15:56 Estimated GFR (MDRD) 123 (>89) 03/02/24 15:56 Glucose 239 mg/dL (74-104) H 03/02/24 15:56 POC Whole Bld Glucose 178 mg/dL (70 - 100) H 03/02/24 18:52 Calcium 9.0 mg/dL (8.5-10.3) 03/02/24 15:56 Phosphorus 1.4 mg/dL (2.5-5.0) L 03/02/24 17:30 Magnesium 2.3 mg/dL (1.7-2.3) 03/02/24 15:56 Total Bilirubin 0.5 mg/dL (0.2-1.0) 03/01/24 05:20 AST 13 IU/L (10-42) 03/01/24 05:20 ALT 11 IU/L (10-60) 03/01/24 05:20 Alkaline Phosphatase 109 IU/L (42-121) 03/01/24 05:20 Total Creatine Kinase 80 IU/L (30-223) 03/01/24 06:05 Troponin I High Sens 6.5 ng/L (2.3-14.8) 03/01/24 05:20 Total Protein 7.5 g/dL (6.4-8.9) 03/01/24 05:20 Albumin 4.5 g/dL (3.2-5.5) 03/01/24 05:20 Globulin 3.0 g/dL (2.1-4.2) 03/01/24 05:20 Albumin/Globulin Ratio 1.5 (1.0-2.2) 03/01/24 05:20 Serum HCG, Qual NEGATIVE 03/01/24 05:20 Urine Color LT. YELLOW 03/01/24 12:16 Urine Clarity CLEAR (CLEAR) 03/01/24 12:16 Urine pH 5.5 PH (5.0-7.5) 03/01/24 12:16 Ur Specific Norris 1.025 (1.002-1.030) 03/01/24 12:16 Urine Protein TRACE mg/dL (NEGATIVE) 03/01/24 12:16 Urine Glucose (UA) 500 mg/dL (NEGATIVE) H 03/01/24 12:16 Urine Ketones >=80 mg/dL (NEGATIVE) H 03/01/24 12:16 Urine Occult Blood SMALL (NEGATIVE) H 03/01/24 12:16 Urine Nitrite NEGATIVE (NEGATIVE) 03/01/24 12:16 Urine Bilirubin NEGATIVE (NEGATIVE) 03/01/24 12:16 Urine Urobilinogen 0.2 (NORMAL) E.U./dL (NORMAL) 03/01/24 12:16 Ur Leukocyte Esterase NEGATIVE (NEGATIVE) 03/01/24 12:16 Urine RBC 0-5 /HPF (0-5) 03/01/24 12:16 Urine WBC 6-10 /HPF (0-5) H 03/01/24 12:16 Ur Squamous Epith Cells FEW Squamous (<= Few) 03/01/24 12:16 Urine Bacteria Few /HPF (None Seen) 03/01/24 12:16 Ur Microscopic Review INDICATED 03/01/24 12:16 Urine Culture Comments NOT INDICATED 03/01/24 12:16 Urine HCG, Qual NEGATIVE 03/01/24 12:16 Nasal Adenovirus (PCR) NOT DETECTED 03/01/24 07:27 Nasal B. parapertussis DNA (PCR) NOT DETECTED 03/01/24 07:27 Nasal Coronavir 229E PCR NOT DETECTED 03/01/24 07:27 Nasal Coronavir HKU1 PCR NOT DETECTED 03/01/24 07:27 Nasal Coronavir NL63 PCR NOT DETECTED 03/01/24 07:27 Nasal Coronavir OC43 PCR NOT DETECTED 03/01/24 07:27 Nasal Enterovir/Rhinovir PCR NOT DETECTED 03/01/24 07:27 Nasal Influenza B PCR NOT DETECTED 03/01/24 07:27 Nasal Influenza A PCR NOT DETECTED 03/01/24 07:27 Nasal Parainfluen 1 PCR NOT DETECTED 03/01/24 07:27 Nasal Parainfluen 2 PCR NOT DETECTED 03/01/24 07:27 Nasal Parainfluen 3 PCR NOT DETECTED 03/01/24 07:27 Nasal Parainfluen 4 PCR NOT DETECTED 03/01/24 07:27 Nasal RSV (PCR) NOT DETECTED 03/01/24 07:27 Nasal Screen MRSA (PCR) NEGATIVE (NEGATIVE) 03/01/24 11:50 Nasal B.pertussis DNA PCR NOT DETECTED 03/01/24 07:27 Nasal C.pneumoniae (PCR) NOT DETECTED 03/01/24 07:27 Maciel Human Metapneumo PCR NOT DETECTED 03/01/24 07:27 Nasal M.pneumoniae (PCR) NOT DETECTED 03/01/24 07:27 Nasal SARS-CoV-2 (PCR) NOT DETECTED 03/01/24 07:27 Urine Opiates Screen NEGATIVE (NEGATIVE) 03/01/24 07:09 Ur Buprenorphine Scrn NEGATIVE (NEGATIVE) 03/01/24 07:09 Ur Oxycodone Screen NEGATIVE (NEGATIVE) 03/01/24 07:09 Urine Methadone Screen NEGATIVE (NEGATIVE) 03/01/24 07:09 Ur Barbiturates Screen NEGATIVE (NEGATIVE) 03/01/24 07:09 Ur Tricyclics Screen NEGATIVE (NEGATIVE) 03/01/24 07:09 Ur Phencyclidine Scrn NEGATIVE (NEGATIVE) 03/01/24 07:09 Ur Amphetamine Screen NEGATIVE (NEGATIVE) 03/01/24 07:09 U Methamphetamines Scrn NEGATIVE (NEGATIVE) 03/01/24 07:09 U Benzodiazepines Scrn NEGATIVE (NEGATIVE) 03/01/24 07:09 Urine Cocaine Screen NEGATIVE (NEGATIVE) 03/01/24 07:09 U Cannabinoids Screen NEGATIVE (NEGATIVE) 03/01/24 07:09 Ur Drug Screen Comment CUTOFF CONC BELOW: 03/01/24 07:09 Serum Ketones MODERATE (NEGATIVE) H 03/01/24 05:05
[2024-03-02 20:38] LABS: CALCIUM 8.3 mg/dL (8.5-10.3); CREATININE 0.5 mg/dL (0.6-1.3); POTASSIUM 3.1 mmol/L (3.5-4.5)
[2024-03-02] MEDS: NEUTRA-PHOS 250 MG TABLET PO SCH (21:06)
[2024-03-03] MEDS: POTASSIUM CHLOR 20 MEQ/100 ML 20 MEQ/100 ML BAG IV SCH ×6 (00:21→20:47)
[2024-03-03 03:13] LABS: CALCIUM, IONIZED 1.21 mmol/L (1.15-1.33); VBG PH 7.309 (7.31-7.41)
[2024-03-03 03:14] LABS: BASOPHILS % (AUTO) 0.2 %; EOSINOPHILS % (AUTO) 0.1 %; HCT - HEMATOCRIT 33.7 % (37.0-47.0); HGB - HEMOGLOBIN 11.8 g/dL (12.0-16.0); LYMPHOCYTES % (AUTO) 7.8 %; MEAN CORPUSCULAR HEMOGLOBIN 31.8 pg (27.0-31.0); MEAN CORPUSCULAR VOLUME 90.8 fL (81.0-99.0); NEUTROPHILS % (AUTO) 77.5 %; PLT - PLATELET COUNT 298 10^3/uL (130-450); RED BLOOD COUNT 3.71 10^6/uL (4.20-5.40); RED CELL DISTRIBUTION WIDTH 14.6 % (12.0-15.0); WHITE BLOOD COUNT 12.2 x10^3/uL (4.8-10.8)
[2024-03-03 03:18] LABS: ABNORMAL LYMPHS % (MANUAL) 0 %
[2024-03-03 03:29] LABS: MAGNESIUM 1.8 mg/dL (1.7-2.3); PHOSPHORUS 1.4 mg/dL (2.5-5.0)
[2024-03-03 03:55] LABS: ALBUMIN 3.4 g/dL (3.2-5.5); ALKALINE PHOSPHATASE 80 IU/L (42-121); ALT ALANINE AMINOTRANSFERASE 8 IU/L (10-60); AST ASPARTATE AMINOTRANSFERASE 7 IU/L (10-42); BILIRUBIN,DIRECT < 0.10 mg/dL (0.03-0.18); BILIRUBIN,TOTAL 0.7 mg/dL (0.2-1.0)
[2024-03-03] MEDS: MAGNESIUM SULFATE 2 GRAM 2 GM/50 ML BAG IV ONE ×2 (04:34→20:44)
[2024-03-03 04:40] LABS: BAND NEUTROPHILS % (MANUAL) 1 %; LYMPHOCYTES # (MANUAL) 1.1 10^3/uL (1.5-3.5); LYMPHOCYTES % (MANUAL) 9 %; MONOCYTES # (MANUAL) 1.3 10^3/uL (0.0-1.0); NEUTROPHILS # (MANUAL) 9.8 10^3/uL (1.5-6.6); PLATELET ESTIMATE, MANUAL NORMAL (130-450,000) (NORMAL); RBC MORPHOLOGY (MULTIPLE) NORMAL APPEARANCE (NORMAL)
[2024-03-03 04:41] LABS: DIFFERENTIAL COMMENT MANUAL DIFFERENTIAL
[2024-03-03 07:28] LABS: MAGNESIUM 2.4 mg/dL (1.7-2.3)
[2024-03-03 07:31] LABS: CREATININE 0.5 mg/dL (0.6-1.3); POTASSIUM 3.1 mmol/L (3.5-4.5)
[2024-03-03] MEDS: SODIUM PHOSPHATE 21 MMOL in SODIUM CHLORIDE 0.9% 250 ML IV ONE ×2 (08:36→16:49)
[2024-03-03] MEDS: POTASSIUM CHLOR 20 MEQ/100 ML 20 MEQ/100 ML BAG IV ONE (08:45)
[2024-03-03] MEDS: DEXTROSE 5%-LACTATED RINGERS 1,000 ML IV SCH ×2 (08:59→15:13)
[2024-03-03] MEDS ORDERED: INSULIN REGULAR IN 0.9 % NS 100 UNIT/100 ML BAG IV SCH (09:00)
[2024-03-03] MEDS: SODIUM CHLORIDE FLUSH 0.9% 10 ML SYRINGE IVP PRN (10:20)
[2024-03-03 12:09] LABS: CREATININE 0.4 mg/dL (0.6-1.3)
[2024-03-03] MEDS ORDERED: INSULIN REGULAR HUMAN 100 UNIT in SODIUM CHLORIDE 0.9% 100ML 99 ML IV SCH (15:00)
[2024-03-03 15:40] LABS: CREATININE 0.4 mg/dL (0.6-1.3); MAGNESIUM 1.7 mg/dL (1.7-2.3); PHOSPHORUS 1.9 mg/dL (2.5-5.0); POTASSIUM 3.2 mmol/L (3.5-4.5)
[2024-03-03] MEDS: LACTATED RINGERS 1,000 ML IV ONE ×2 (16:53→21:10)
[2024-03-03 19:31] LABS: CALCIUM 7.8 mg/dL (8.5-10.3); CREATININE 0.4 mg/dL (0.6-1.3); POTASSIUM 3.4 mmol/L (3.5-4.5)
--- NOTE | 2024-03-03 22:39 | PROVIDER PROGRESS NOTE ---
Assessment/Plan - Problem List (1) DKA (diabetic ketoacidosis) Qualifiers: Diabetes mellitus type: type 2 Diabetes mellitus complication detail: without coma Qualified Code(s): E11.10 - Type 2 diabetes mellitus with ketoacidosis without coma Assessment/Plan: Profound acidosis is resolving. Anion gap has resolved. Serum bicarbonate has increased but has not reached a normal level at this time. Continue insulin drip. At a low rate of 2 units/kg/h Plan is to stop using the protocol and follow the [place] [employer] recommendations of 0.05 units/kg/h. We will start with a dose of 2 units/h. She will receive the dextrose solution to maintain a serum glucose between [id number]. Continue fluid hydration with lactated Ringer's. Continue to monitor electrolytes closely and replace as needed. (2) Hypokalemia Assessment/Plan: Replace as needed. (3) Hypophosphatemia Assessment/Plan: Replace as needed. (4) Hypomagnesia Assessment/Plan: Replace as needed. - Current Meds Current Meds: Current Medications Generic Name Dose Route Start Last Admin Trade Name Freq PRN Reason Stop Dose Admin Acetaminophen 650 mg 03/01/24 16:15 03/03/24 13:18 Acetaminophen 325 Mg Tablet PO 650 mg Q4HR PRN Administration Pain or Fever > 38C (100.4F) Hydrocodone Bitart/Acetaminophen 1 tab 03/01/24 18:48 03/03/24 05:22 Hydrocod/Acetam 5/325 Mg Tablet PO 1 tab Q4HR PRN Administration Moderate Pain (Level 4-6) Heparin Sodium (Porcine) 5,000 unit 03/01/24 21:00 03/03/24 20:51 Heparin 5,000 Unit/Ml Vial SUBQ 5,000 unit BID LAURA Administration Insulin Human Regular 100 unit 100 mls @ 2 mls/hr 03/01/24 14:00 03/03/24 19:48 / Sodium Chloride IV 2 unit/hr .Q50H LAURA 2 mls/hr Titration Protocol 2 UNIT/HR Lactated Ringer's 1,000 mls @ 250 mls/hr 03/02/24 11:00 03/03/24 20:55 Lr IV Infused .Q4H LAURA Infusion Dextrose/Lactated Ringer's 1,000 mls @ 125 mls/hr 03/03/24 15:01 03/03/24 19:48 D5lr IV 125 mls/hr .Q8H LAURA Administration Potassium Chloride 20 meq in 100 mls @ 100 mls/hr 03/03/24 21:00 03/03/24 22:07 Potassium Chloride IV 03/03/24 22:59 100 mls/hr Q1H LAURA Administration Protocol Pantoprazole Sodium 40 mg 03/02/24 12:00 03/03/24 06:08 Pantoprazole 40 Mg Tablet PO 40 mg QDAC LAURA Administration Sodium Chloride 10 ml 03/01/24 17:00 03/03/24 21:23 Sodium Chloride Flush 0.9% 10 Ml Syringe IVP Not Given 0100,0900,1700 LAURA Sodium Chloride 10 ml 03/01/24 10:48 03/03/24 13:38 Sodium Chloride Flush 0.9% 10 Ml Syringe IVP 10 ml PRN PRN Administration NEEDED PER PROVIDER ORDERS Throat Lozenges 1 lozenge 03/02/24 10:00 03/03/24 10:36 Benzocaine/Menthol Lozenge MM 1 lozenge Q2HR PRN Administration Throat pain - Lab Result Fish Bone Diagrams: 03/03/24 03:05 03/03/24 19:00 - Additional Planning My Orders: My Active Orders 03/03/24 08:47 Miscellaenous Nursing Order [RC] QSHIFT 03/03/24 Lunch Carb-controlled Diet [DIET] 03/03/24 15:01 Dextrose 5%-Lactated Ringers [D5lr] 1,000 ml IV 125 mls/hr 03/03/24 21:00 Potassium Chlor 20 Meq/100 ml [Potassium Chloride] 20 meq in 100 ml IV Q1H 03/03/24 23:00 BMP - BASIC METABOLIC PANEL [CHEM] Q4H 03/04/24 00:00 MAGNESIUM [CHEM] Timed PHOSPHORUS [CHEM] Timed POTASSIUM [CHEM] Timed Subjective - Subjective Patient Reports: Other (Alert. States she overall feels much better. She is not at her baseline at this time. She denies chest pain, shortness of breath and abdominal pain. She has no other complaints at this time) Objective Vital Signs: Vital Signs - 24 hr 03/02/24 03/03/24 03/03/24 23:00 00:00 01:00 Temperature 36.7 C Heart Rate [ 112 H 103 H 106 H Monitoring electrodes] Respiratory 30 H 25 H 22 Rate Blood Pressure 145/81 H 128/76 115/78 [Right Brachial artery] O2 Saturation 100 100 100 03/03/24 03/03/24 03/03/24 02:00 03:00 04:00 Temperature Heart Rate [ 134 H 113 H 115 H Monitoring electrodes] Respiratory 33 H 21 19 Rate Blood Pressure 134/86 H 123/79 122/77 [Right Brachial artery] O2 Saturation 100 100 100 03/03/24 03/03/24 03/03/24 05:00 06:00 07:00 Temperature Heart Rate [ 112 H 116 H 111 H Monitoring electrodes] Respiratory 23 24 20 Rate Blood Pressure 116/74 113/57 L 109/59 L [Right Brachial artery] O2 Saturation 100 100 98 03/03/24 03/03/24 03/03/24 08:00 09:00 10:00 Temperature 37.7 C Heart Rate [ 119 H 113 H 122 H Monitoring electrodes] Respiratory 24 20 20 Rate Blood Pressure 166/66 H 115/68 126/85 H [Right Brachial artery] O2 Saturation 100 98 100 03/03/24 03/03/24 03/03/24 11:00 12:00 12:49 Temperature 37.2 C Heart Rate [ 107 H 112 H Monitoring electrodes] Respiratory 25 H 22 Rate Blood Pressure 120/75 118/79 [Right Brachial artery] O2 Saturation 100 100 03/03/24 03/03/24 03/03/24 13:00 14:00 15:00 Temperature Heart Rate [ 116 H 110 H 112 H Monitoring electrodes] Respiratory 22 21 23 Rate Blood Pressure 128/89 H 114/64 104/71 [Right Brachial artery] O2 Saturation 100 100 99 03/03/24 03/03/24 03/03/24 16:00 17:00 18:00 Temperature 37.4 C Heart Rate [ 120 H 124 H 117 H Monitoring electrodes] Respiratory 21 22 27 H Rate Blood Pressure 113/67 129/86 H 119/67 [Right Brachial artery] O2 Saturation 99 100 100 03/03/24 03/03/24 03/03/24 19:00 20:00 21:00 Temperature 36.8 C Heart Rate [ 108 H 119 H 112 H Monitoring electrodes] Respiratory 26 H 25 H 29 H Rate Blood Pressure 112/67 122/72 115/63 [Right Brachial artery] O2 Saturation 100 98 100 03/03/24 22:00 Temperature Heart Rate [ 114 H Monitoring electrodes] Respiratory 17 Rate Blood Pressure 114/58 L [Right Brachial artery] O2 Saturation 97 Oxygen O2 Source Room air I&O (Last 24 Hrs): Intake and Output Totals x24h 03/01/24 03/02/24 03/03/24 23:59 23:59 23:59 Intake Total 6043.592 9448.574 7302.950 Output Total 4750 5900 2300 Balance 9655.873 5567.574 5002.950 General: Alert, Oriented x3, Cooperative, No acute distress HEENT: Atraumatic, EOMI Neck: No JVD, No thyromegaly Neuro: Non Focal Cardiovascular: Other (Positive S1-S2 no extra heart sounds.) Respiratory: Other (Good air exchange in all lung pedroza no wheezing no crackles) Abdomen: Other (Soft nontender nondistended positive bowel sounds) Extremities: No cyanosis, No edema Skin: No rashes - Results Results: Laboratory Results WBC 12.2 x10^3/uL (4.8-10.8) H 03/03/24 03:05 RBC 3.71 10^6/uL (4.20-5.40) L 03/03/24 03:05 Hgb 11.8 g/dL (12.0-16.0) L 03/03/24 03:05 Hct 33.7 % (37.0-47.0) L 03/03/24 03:05 MCV 90.8 fL (81.0-99.0) 03/03/24 03:05 MCH 31.8 pg (27.0-31.0) H 03/03/24 03:05 MCHC 35.0 g/dL (32.0-36.0) 03/03/24 03:05 RDW 14.6 % (12.0-15.0) 03/03/24 03:05 Plt Count 298 10^3/uL (130-450) 03/03/24 03:05 MPV 9.0 fL (7.9-10.8) 03/03/24 03:05 Neut # (Auto) Not Reportable 03/03/24 03:05 Lymph # (Auto) Not Reportable 03/03/24 03:05 [place] # (Auto) Not Reportable 03/03/24 03:05 Eos # (Auto) Not Reportable 03/03/24 03:05 Baso # (Auto) Not Reportable 03/03/24 03:05 Absolute Nucleated RBC Not Reportable 03/03/24 03:05 Total Counted 100 03/03/24 03:05 Band Neuts % (Manual) 1 % (0-10) 03/03/24 03:05 Abnorm Lymph % (Manual) 0 % 03/03/24 03:05 Nucleated RBC % Not Reportable 03/03/24 03:05 Neutrophils # (Manual) 9.8 10^3/uL (1.5-6.6) H 03/03/24 03:05 Lymphocytes # (Manual) 1.1 10^3/uL (1.5-3.5) L 03/03/24 03:05 Monocytes # (Manual) 1.3 10^3/uL (0.0-1.0) H 03/03/24 03:05 Eosinophils # (Manual) 0.0 10^3/uL (0-0.7) 03/03/24 03:05 Basophils # (Manual) 0.0 10^3/uL (0-0.1) 03/03/24 03:05 Differential Comment MANUAL DIFFERENTIAL 03/03/24 03:05 Platelet Estimate NORMAL (130-450,000) (NORMAL) 03/03/24 03:05 RBC Morph Micro Appear NORMAL APPEARANCE (NORMAL) 03/03/24 03:05 PT 12.1 secs (9.9-12.6) 03/01/24 05:57 INR 1.1 (0.8-1.2) 03/01/24 05:57 D-Dimer > 1050.0 ng/mL (200.0-255.0) H 03/01/24 05:57 Bld Gas Analysis Time 0451 03/02/24 04:45 Sample Site LEFT RADIAL 03/02/24 04:45 ABG pH 7.19 (7.35-7.45) L* 03/02/24 04:45 ABG pCO2 22 mmHg (34-45) L* 03/02/24 04:45 ABG pO2 77 mmHg (80-100) L 03/02/24 04:45 ABG HCO3 8.3 mmol/L (22.0-26.0) L 03/02/24 04:45 ABG Total CO2 9.0 MMOL/L (21.0-29.0) L* 03/02/24 04:45 ABG O2 Saturation 97 % (94-98) 03/02/24 04:45 ABG Base Excess -17.9 mmol/L (-2.0-3.0) L 03/02/24 04:45 Robb Test POSITIVE 03/02/24 04:45 VBG pH 7.309 (7.31-7.41) L 03/03/24 03:05 VBG pCO2 27.7 mmHg (41-51) L 03/01/24 10:17 VBG pO2 43.1 mmHg (25-47) 03/01/24 10:17 VBG HCO3 4.0 mmol/L (23-28) L 03/01/24 10:17 VBG Total CO2 4.8 mmol/L (24-29) L 03/01/24 10:17 VBG O2 Saturation 76.8 % (60-80) 03/01/24 10:17 VBG Base Excess -30.9 mmol/L (-2 - +2) L 03/01/24 10:17 Ionized Calcium 1.21 mmol/L (1.15-1.33) 03/03/24 03:05 Room Air YES 03/02/24 04:45 FiO2 21.00 03/02/24 04:45 Sodium 137 mmol/L (135-145) 03/03/24 19:00 Potassium 3.4 mmol/L (3.5-4.5) L 03/03/24 19:00 Chloride 110 mmol/L (101-111) 03/03/24 19:00 Carbon Dioxide 17 mmol/L (21-32) L 03/03/24 19:00 Anion Gap 10.0 (6-13) 03/03/24 19:00 BUN 3 mg/dL (6-20) L 03/03/24 19:00 Creatinine 0.4 mg/dL (0.6-1.3) L 03/03/24 19:00 Estimated GFR (MDRD) 196 (>89) 03/03/24 19:00 Glucose 325 mg/dL (74-104) H 03/03/24 19:00 POC Whole Bld Glucose 207 mg/dL (70 - 100) H 03/03/24 22:06 Calcium 7.8 mg/dL (8.5-10.3) L 03/03/24 19:00 Phosphorus 1.9 mg/dL (2.5-5.0) L 03/03/24 15:05 Magnesium 1.7 mg/dL (1.7-2.3) 03/03/24 15:05 Total Bilirubin 0.7 mg/dL (0.2-1.0) 03/03/24 03:05 Direct Bilirubin < 0.10 mg/dL (0.03-0.18) 03/03/24 03:05 AST 7 IU/L (10-42) L 03/03/24 03:05 ALT 8 IU/L (10-60) L 03/03/24 03:05 Alkaline Phosphatase 80 IU/L (42-121) 03/03/24 03:05 Total Creatine Kinase 80 IU/L (30-223) 03/01/24 06:05 Troponin I High Sens 6.5 ng/L (2.3-14.8) 03/01/24 05:20 Total Protein 6.0 g/dL (6.4-8.9) L 03/03/24 03:05 Albumin 3.4 g/dL (3.2-5.5) 03/03/24 03:05 Globulin 2.6 g/dL (2.1-4.2) 03/03/24 03:05 Albumin/Globulin Ratio 1.5 (1.0-2.2) 03/01/24 05:20 Serum HCG, Qual NEGATIVE 03/01/24 05:20 Urine Color LT. YELLOW 03/01/24 12:16 Urine Clarity CLEAR (CLEAR) 03/01/24 12:16 Urine pH 5.5 PH (5.0-7.5) 03/01/24 12:16 Ur Specific [place] 1.025 (1.002-1.030) 03/01/24 12:16 Urine Protein TRACE mg/dL (NEGATIVE) 03/01/24 12:16 Urine Glucose (UA) 500 mg/dL (NEGATIVE) H 03/01/24 12:16 Urine Ketones >=80 mg/dL (NEGATIVE) H 03/01/24 12:16 Urine Occult Blood SMALL (NEGATIVE) H 03/01/24 12:16 Urine Nitrite NEGATIVE (NEGATIVE) 03/01/24 12:16 Urine Bilirubin NEGATIVE (NEGATIVE) 03/01/24 12:16 Urine Urobilinogen 0.2 (NORMAL) E.U./dL (NORMAL) 03/01/24 12:16 Ur Leukocyte Esterase NEGATIVE (NEGATIVE) 03/01/24 12:16 Urine RBC 0-5 /HPF (0-5) 03/01/24 12:16 Urine WBC 6-10 /HPF (0-5) H 03/01/24 12:16 Ur Squamous Epith Cells FEW Squamous (<= Few) 03/01/24 12:16 Urine Bacteria Few /HPF (None Seen) 03/01/24 12:16 Ur Microscopic Review INDICATED 03/01/24 12:16 Urine Culture Comments NOT INDICATED 03/01/24 12:16 Urine HCG, Qual NEGATIVE 03/01/24 12:16 Nasal Adenovirus (PCR) NOT DETECTED 03/01/24 07:27 Nasal B. parapertussis DNA (PCR) NOT DETECTED 03/01/24 07:27 Nasal Coronavir 229E PCR NOT DETECTED 03/01/24 07:27 Nasal Coronavir HKU1 PCR NOT DETECTED 03/01/24 07:27 Nasal Coronavir NL63 PCR NOT DETECTED 03/01/24 07:27 Nasal Coronavir OC43 PCR NOT DETECTED 03/01/24 07:27 Nasal Enterovir/Rhinovir PCR NOT DETECTED 03/01/24 07:27 Nasal Influenza B PCR NOT DETECTED 03/01/24 07:27 Nasal Influenza A PCR NOT DETECTED 03/01/24 07:27 Nasal Parainfluen 1 PCR NOT DETECTED 03/01/24 07:27 Nasal Parainfluen 2 PCR NOT DETECTED 03/01/24 07:27 Nasal Parainfluen 3 PCR NOT DETECTED 03/01/24 07:27 Nasal Parainfluen 4 PCR NOT DETECTED 03/01/24 07:27 Nasal RSV (PCR) NOT DETECTED 03/01/24 07:27 Nasal Screen MRSA (PCR) NEGATIVE (NEGATIVE) 03/01/24 11:50 Nasal B.pertussis DNA PCR NOT DETECTED 03/01/24 07:27 Nasal C.pneumoniae (PCR) NOT DETECTED 03/01/24 07:27 Maciel Human Metapneumo PCR NOT DETECTED 03/01/24 07:27 Nasal M.pneumoniae (PCR) NOT DETECTED 03/01/24 07:27 Nasal SARS-CoV-2 (PCR) NOT DETECTED 03/01/24 07:27 Urine Opiates Screen NEGATIVE (NEGATIVE) 03/01/24 07:09 Ur Buprenorphine Scrn NEGATIVE (NEGATIVE) 03/01/24 07:09 Ur Oxycodone Screen NEGATIVE (NEGATIVE) 03/01/24 07:09 Urine Methadone Screen NEGATIVE (NEGATIVE) 03/01/24 07:09 Ur Barbiturates Screen NEGATIVE (NEGATIVE) 03/01/24 07:09 Ur Tricyclics Screen NEGATIVE (NEGATIVE) 03/01/24 07:09 Ur Phencyclidine Scrn NEGATIVE (NEGATIVE) 03/01/24 07:09 Ur Amphetamine Screen NEGATIVE (NEGATIVE) 03/01/24 07:09 U Methamphetamines Scrn NEGATIVE (NEGATIVE) 03/01/24 07:09 U Benzodiazepines Scrn NEGATIVE (NEGATIVE) 03/01/24 07:09 Urine Cocaine Screen NEGATIVE (NEGATIVE) 03/01/24 07:09 U Cannabinoids Screen NEGATIVE (NEGATIVE) 03/01/24 07:09 Ur Drug Screen Comment CUTOFF CONC BELOW: 03/01/24 07:09 Serum Ketones MODERATE (NEGATIVE) H 03/01/24 05:05
[2024-03-04 00:35] LABS: CALCIUM 7.9 mg/dL (8.5-10.3); CREATININE 0.4 mg/dL (0.6-1.3); MAGNESIUM 1.9 mg/dL (1.7-2.3); PHOSPHORUS 2.1 mg/dL (2.5-5.0); POTASSIUM 3.2 mmol/L (3.5-4.5)
[2024-03-04] MEDS: POTASSIUM CHLOR 20 MEQ/100 ML 20 MEQ/100 ML BAG IV SCH ×2 (01:02→23:48)
[2024-03-04] MEDS: NEUTRA-PHOS 250 MG TABLET PO SCH ×3 (01:02→19:22)
[2024-03-04] MEDS ORDERED: POTASSIUM CHLOR 10 MEQ/100 ML 10 MEQ/100 ML BAG IV ONE (02:00)
[2024-03-04] MEDS: POTASSIUM CHLOR 10 MEQ/100 ML 10 MEQ/100 ML BAG IV SCH (02:04)
[2024-03-04] MEDS: BENZONATATE 100 MG CAPSULE PO PRN (02:22)
[2024-03-04] MEDS: CALCIUM CARBONATE CHEW 500 MG TABLET PO PRN (02:22)
[2024-03-04 05:23] LABS: CALCIUM, IONIZED 1.07 mmol/L (1.15-1.33); VBG PH 7.465 (7.31-7.41)
[2024-03-04 05:56] LABS: MAGNESIUM 1.8 mg/dL (1.7-2.3); PHOSPHORUS 2.2 mg/dL (2.5-5.0)
[2024-03-04 06:30] LABS: CREATININE 0.4 mg/dL (0.6-1.3); POTASSIUM 3.4 mmol/L (3.5-4.5)
[2024-03-04] MEDS: MAGNESIUM OXIDE 400 MG TABLET PO ONE ×4 (06:33→23:48)
[2024-03-04] MEDS: CALCIUM CARBONATE CHEW 500 MG TABLET PO SCH (06:33)
[2024-03-04 06:40] LABS: CALCIUM 7.8 mg/dL (8.5-10.3)
[2024-03-04] MEDS: POTASSIUM CHLORIDE 20 MEQ TABLET PO SCH ×2 (07:09→16:11)
[2024-03-04 08:39] LABS: CALCIUM 8.5 mg/dL (8.5-10.3); CREATININE 0.4 mg/dL (0.6-1.3); POTASSIUM 3.1 mmol/L (3.5-4.5)
[2024-03-04] MEDS: LACTATED RINGERS 1,000 ML IV SCH (11:07)
[2024-03-04] MEDS: INSULIN GLARGINE-YFGN 300 UNIT/3 ML PEN SUBQ SCH (11:18)
[2024-03-04 11:31] LABS: ESTIMATED AVERAGE GLUCOSE 289 mg/dL (70-100); HEMOGLOBIN A1c% 11.7 % (4.27-6.07)
[2024-03-04] MEDS: INSULIN LISPRO 300 UNIT/3 ML PEN SUBQ SCH ×2 (12:08→12:09)
[2024-03-04 15:36] LABS: CALCIUM, IONIZED 1.12 mmol/L (1.15-1.33); VBG PH 7.478 (7.31-7.41)
[2024-03-04 15:52] LABS: MAGNESIUM 1.8 mg/dL (1.7-2.3); POTASSIUM 3.4 mmol/L (3.5-4.5)
[2024-03-04 18:55] LABS: CALCIUM 8.8 mg/dL (8.5-10.3); CREATININE 0.5 mg/dL (0.6-1.3); MAGNESIUM 1.7 mg/dL (1.7-2.3); PHOSPHORUS 2.4 mg/dL (2.5-5.0); POTASSIUM 3.2 mmol/L (3.5-4.5)
--- NOTE | 2024-03-04 21:15 | PROVIDER PROGRESS NOTE ---
Assessment/Plan - Problem List (1) DKA (diabetic ketoacidosis) Qualifiers: Diabetes mellitus type: type 2 Diabetes mellitus complication detail: without coma Qualified Code(s): E11.10 - Type 2 diabetes mellitus with ketoacidosis without coma Assessment/Plan: Profound has resolved. Anion gap has resolved. Serum bicarbonate is 22. Discontinue insulin drip and start Lantus and sliding scale insulin. Continue to follow electrolytes. (2) Hypokalemia Assessment/Plan: Replace as needed. (3) Hypophosphatemia Assessment/Plan: Replace as needed. (4) Hypomagnesia Assessment/Plan: Replace as needed. (5) Disposition Assessment/Plan: Ms. Galdamez continues to qualify for inpatient hospital stay given the fact that she continues to require management for severe diabetic ketoacidosis - Current Meds Current Meds: Current Medications Generic Name Dose Route Start Last Admin Trade Name Freq PRN Reason Stop Dose Admin Acetaminophen 650 mg 03/01/24 16:15 03/04/24 16:59 Acetaminophen 325 Mg Tablet PO 650 mg Q4HR PRN Administration Pain or Fever > 38C (100.4F) Benzonatate 100 mg 03/04/24 02:11 03/04/24 02:22 Benzonatate 100 Mg Capsule PO 100 mg TID PRN Administration Cough Calcium Carbonate/Glycine 500 mg 03/04/24 02:12 03/04/24 02:22 Calcium Carbonate Chew 500 Mg Tablet PO 500 mg BID PRN Administration Heartburn Heparin Sodium (Porcine) 5,000 unit 03/01/24 21:00 03/04/24 20:55 Heparin 5,000 Unit/Ml Vial SUBQ 5,000 unit BID LAURA Administration Lactated Ringer's 1,000 mls @ 125 mls/hr 03/04/24 11:00 03/04/24 19:33 Lr IV 125 mls/hr .Q8H LAURA Administration Insulin Glargine-yfgn 24 unit 03/04/24 10:50 03/04/24 20:56 Insulin Glargine-Yfgn 300 Unit/3 Ml Pen SUBQ 24 unit QPM LAURA Administration Insulin Human Lispro 5 unit 03/04/24 12:00 03/04/24 17:00 Insulin Lispro 300 Unit/3 Ml Pen SUBQ 5 unit TIDWM LAURA Administration Protocol Insulin Human Lispro 1 - 9 unit 03/04/24 12:00 03/04/24 20:55 Insulin Lispro 300 Unit/3 Ml Pen SUBQ 1 unit 0800,1200,1700,2100 LAURA Administration Protocol Pantoprazole Sodium 40 mg 03/02/24 12:00 03/04/24 06:33 Pantoprazole 40 Mg Tablet PO 40 mg QDAC LAURA Administration Sodium Chloride 10 ml 03/01/24 17:00 03/04/24 16:12 Sodium Chloride Flush 0.9% 10 Ml Syringe IVP 10 ml 0100,0900,1700 LAURA Administration Sodium Chloride 10 ml 03/01/24 10:48 03/04/24 18:19 Sodium Chloride Flush 0.9% 10 Ml Syringe IVP 30 ml PRN PRN Administration NEEDED PER PROVIDER ORDERS Throat Lozenges 1 lozenge 03/02/24 10:00 03/03/24 10:36 Benzocaine/Menthol Lozenge MM 1 lozenge Q2HR PRN Administration Throat pain - Lab Result Fish Bone Diagrams: 03/03/24 03:05 03/04/24 18:30 - Additional Planning My Orders: My Active Orders 03/04/24 10:48 Miscellaenous Nursing Order [RC] ONCE 03/04/24 10:50 Insulin Glargine-Yfgn [Semglee] 24 unit SUBQ QPM 03/04/24 10:57 Initiate Hypoglycemia Protocol [RC] .protocol 03/04/24 11:00 Lactated Ringers [Lr] 1,000 ml IV 125 mls/hr 03/04/24 12:00 Blood Glucose Checks - Eating [RC] ACHS Insulin Lispro [Humalog Kwikpen U-100] 1 - 9 unit SUBQ 0800,1200,1700,2100 Insulin Lispro [Humalog Kwikpen U-100] 5 unit SUBQ TIDWM Subjective - Subjective Patient Reports: Other (Alert. Denies chest pain shortness of breath and abdominal pain. Denies fevers and chills no other complaints at this time.) Objective Vital Signs: Vital Signs - 24 hr 03/03/24 03/03/24 03/04/24 22:00 23:00 00:00 Temperature 37 C Heart Rate [ 114 H 114 H 106 H Monitoring electrodes] Respiratory 17 21 16 Rate Blood Pressure 114/58 L 120/61 116/64 [Right Brachial artery] O2 Saturation 97 96 97 03/04/24 03/04/24 03/04/24 01:00 02:00 03:00 Temperature 37 C Heart Rate [ 110 H 105 H 107 H Monitoring electrodes] Respiratory 20 19 20 Rate Blood Pressure 113/68 108/67 113/68 [Right Brachial artery] O2 Saturation 99 96 97 03/04/24 03/04/24 03/04/24 04:00 05:00 06:00 Temperature 37 C Heart Rate [ 103 H 99 97 Monitoring electrodes] Respiratory 19 22 19 Rate Blood Pressure 99/57 L 110/67 118/72 [Right Brachial artery] O2 Saturation 97 97 98 03/04/24 03/04/24 03/04/24 07:00 08:00 09:00 Temperature 36.7 C Heart Rate [ 108 H 104 H 110 H Monitoring electrodes] Respiratory 20 24 23 Rate Blood Pressure 116/76 123/85 H 120/74 [Right Brachial artery] O2 Saturation 98 98 99 03/04/24 03/04/24 03/04/24 10:00 11:00 12:00 Temperature 36.8 C Heart Rate [ 106 H 101 H 125 H Monitoring electrodes] Respiratory 21 22 20 Rate Blood Pressure 105/61 115/73 123/84 H [Right Brachial artery] O2 Saturation 98 98 100 03/04/24 03/04/24 03/04/24 13:00 14:00 15:00 Temperature Heart Rate [ 127 H 116 H 112 H Monitoring electrodes] Respiratory 24 21 27 H Rate Blood Pressure 117/83 H 108/70 111/70 [Right Brachial artery] O2 Saturation 98 03/04/24 03/04/24 03/04/24 16:00 17:00 18:00 Temperature 36.8 C Heart Rate [ 109 H 120 H 122 H Monitoring electrodes] Respiratory 18 17 19 Rate Blood Pressure 112/82 H 120/90 H 132/82 H [Right Brachial artery] O2 Saturation 98 99 98 03/04/24 03/04/24 19:00 20:00 Temperature Heart Rate [ 112 H Monitoring electrodes] Respiratory 19 19 Rate Blood Pressure 131/92 H 113/68 [Right Brachial artery] O2 Saturation 100 100 Oxygen O2 Source Room air I&O (Last 24 Hrs): Intake and Output Totals x24h 03/02/24 03/03/24 03/04/24 23:59 23:59 23:59 Intake Total 9448.574 8452.950 5553.90 Output Total 5900 2300 2400 Balance 3548.574 6152.950 3153.90 General: Alert, Oriented x3, Cooperative Neck: Supple, No JVD Neuro: Alert, Non Focal Cardiovascular: Other (Positive S1-S2 no extra heart sounds.) Respiratory: Other (Good air exchange in all lung pedroza no wheezing no crackles.) Abdomen: Other (Soft nontender nondistended positive bowel sounds) Extremities: No cyanosis, No edema Skin: No rashes - Results Results: Laboratory Results WBC 12.2 x10^3/uL (4.8-10.8) H 03/03/24 03:05 RBC 3.71 10^6/uL (4.20-5.40) L 03/03/24 03:05 Hgb 11.8 g/dL (12.0-16.0) L 03/03/24 03:05 Hct 33.7 % (37.0-47.0) L 03/03/24 03:05 MCV 90.8 fL (81.0-99.0) 03/03/24 03:05 MCH 31.8 pg (27.0-31.0) H 03/03/24 03:05 MCHC 35.0 g/dL (32.0-36.0) 03/03/24 03:05 RDW 14.6 % (12.0-15.0) 03/03/24 03:05 Plt Count 298 10^3/uL (130-450) 03/03/24 03:05 MPV 9.0 fL (7.9-10.8) 03/03/24 03:05 Neut # (Auto) Not Reportable 03/03/24 03:05 Lymph # (Auto) Not Reportable 03/03/24 03:05 [place] # (Auto) Not Reportable 03/03/24 03:05 Eos # (Auto) Not Reportable 03/03/24 03:05 Baso # (Auto) Not Reportable 03/03/24 03:05 Absolute Nucleated RBC Not Reportable 03/03/24 03:05 Total Counted 100 03/03/24 03:05 Band Neuts % (Manual) 1 % (0-10) 03/03/24 03:05 Abnorm Lymph % (Manual) 0 % 03/03/24 03:05 Nucleated RBC % Not Reportable 03/03/24 03:05 Neutrophils # (Manual) 9.8 10^3/uL (1.5-6.6) H 03/03/24 03:05 Lymphocytes # (Manual) 1.1 10^3/uL (1.5-3.5) L 03/03/24 03:05 Monocytes # (Manual) 1.3 10^3/uL (0.0-1.0) H 03/03/24 03:05 Eosinophils # (Manual) 0.0 10^3/uL (0-0.7) 03/03/24 03:05 Basophils # (Manual) 0.0 10^3/uL (0-0.1) 03/03/24 03:05 Differential Comment MANUAL DIFFERENTIAL 03/03/24 03:05 Platelet Estimate NORMAL (130-450,000) (NORMAL) 03/03/24 03:05 RBC Morph Micro Appear NORMAL APPEARANCE (NORMAL) 03/03/24 03:05 PT 12.1 secs (9.9-12.6) 03/01/24 05:57 INR 1.1 (0.8-1.2) 03/01/24 05:57 D-Dimer > 1050.0 ng/mL (200.0-255.0) H 03/01/24 05:57 Bld Gas Analysis Time 0451 03/02/24 04:45 Sample Site LEFT RADIAL 03/02/24 04:45 ABG pH 7.19 (7.35-7.45) L* 03/02/24 04:45 ABG pCO2 22 mmHg (34-45) L* 03/02/24 04:45 ABG pO2 77 mmHg (80-100) L 03/02/24 04:45 ABG HCO3 8.3 mmol/L (22.0-26.0) L 03/02/24 04:45 ABG Total CO2 9.0 MMOL/L (21.0-29.0) L* 03/02/24 04:45 ABG O2 Saturation 97 % (94-98) 03/02/24 04:45 ABG Base Excess -17.9 mmol/L (-2.0-3.0) L 03/02/24 04:45 Robb Test POSITIVE 03/02/24 04:45 VBG pH 7.478 (7.31-7.41) H 03/04/24 15:25 VBG pCO2 27.7 mmHg (41-51) L 03/01/24 10:17 VBG pO2 43.1 mmHg (25-47) 03/01/24 10:17 VBG HCO3 4.0 mmol/L (23-28) L 03/01/24 10:17 VBG Total CO2 4.8 mmol/L (24-29) L 03/01/24 10:17 VBG O2 Saturation 76.8 % (60-80) 03/01/24 10:17 VBG Base Excess -30.9 mmol/L (-2 - +2) L 03/01/24 10:17 Ionized Calcium 1.12 mmol/L (1.15-1.33) L 03/04/24 15:25 Room Air YES 03/02/24 04:45 FiO2 21.00 03/02/24 04:45 Sodium 137 mmol/L (135-145) 03/04/24 18:30 Potassium 3.2 mmol/L (3.5-4.5) L 03/04/24 18:30 Chloride 106 mmol/L (101-111) 03/04/24 18:30 Carbon Dioxide 22 mmol/L (21-32) 03/04/24 18:30 Anion Gap 9.0 (6-13) 03/04/24 18:30 BUN 4 mg/dL (6-20) L 03/04/24 18:30 Creatinine 0.5 mg/dL (0.6-1.3) L 03/04/24 18:30 Estimated GFR (MDRD) 152 (>89) 03/04/24 18:30 Glucose 269 mg/dL (74-104) H 03/04/24 18:30 POC Whole Bld Glucose 179 mg/dL (70 - 100) H 03/04/24 20:48 Estimat Average Glucose 289 mg/dL (70-100) H 03/04/24 04:54 Hemoglobin A1c % 11.7 % (4.27-6.07) H 03/04/24 04:54 Calcium 8.8 mg/dL (8.5-10.3) 03/04/24 18:30 Phosphorus 2.4 mg/dL (2.5-5.0) L 03/04/24 18:30 Magnesium 1.7 mg/dL (1.7-2.3) 03/04/24 18:30 Total Bilirubin 0.7 mg/dL (0.2-1.0) 03/03/24 03:05 Direct Bilirubin < 0.10 mg/dL (0.03-0.18) 03/03/24 03:05 AST 7 IU/L (10-42) L 03/03/24 03:05 ALT 8 IU/L (10-60) L 03/03/24 03:05 Alkaline Phosphatase 80 IU/L (42-121) 03/03/24 03:05 Total Creatine Kinase 80 IU/L (30-223) 03/01/24 06:05 Troponin I High Sens 6.5 ng/L (2.3-14.8) 03/01/24 05:20 Total Protein 6.0 g/dL (6.4-8.9) L 03/03/24 03:05 Albumin 3.4 g/dL (3.2-5.5) 03/03/24 03:05 Globulin 2.6 g/dL (2.1-4.2) 03/03/24 03:05 Albumin/Globulin Ratio 1.5 (1.0-2.2) 03/01/24 05:20 Serum HCG, Qual NEGATIVE 03/01/24 05:20 Urine Color LT. YELLOW 03/01/24 12:16 Urine Clarity CLEAR (CLEAR) 03/01/24 12:16 Urine pH 5.5 PH (5.0-7.5) 03/01/24 12:16 Ur Specific [place] 1.025 (1.002-1.030) 03/01/24 12:16 Urine Protein TRACE mg/dL (NEGATIVE) 03/01/24 12:16 Urine Glucose (UA) 500 mg/dL (NEGATIVE) H 03/01/24 12:16 Urine Ketones >=80 mg/dL (NEGATIVE) H 03/01/24 12:16 Urine Occult Blood SMALL (NEGATIVE) H 03/01/24 12:16 Urine Nitrite NEGATIVE (NEGATIVE) 03/01/24 12:16 Urine Bilirubin NEGATIVE (NEGATIVE) 03/01/24 12:16 Urine Urobilinogen 0.2 (NORMAL) E.U./dL (NORMAL) 03/01/24 12:16 Ur Leukocyte Esterase NEGATIVE (NEGATIVE) 03/01/24 12:16 Urine RBC 0-5 /HPF (0-5) 03/01/24 12:16 Urine WBC 6-10 /HPF (0-5) H 03/01/24 12:16 Ur Squamous Epith Cells FEW Squamous (<= Few) 03/01/24 12:16 Urine Bacteria Few /HPF (None Seen) 03/01/24 12:16 Ur Microscopic Review INDICATED 03/01/24 12:16 Urine Culture Comments NOT INDICATED 03/01/24 12:16 Urine HCG, Qual NEGATIVE 03/01/24 12:16 Nasal Adenovirus (PCR) NOT DETECTED 03/01/24 07:27 Nasal B. parapertussis DNA (PCR) NOT DETECTED 03/01/24 07:27 Nasal Coronavir 229E PCR NOT DETECTED 03/01/24 07:27 Nasal Coronavir HKU1 PCR NOT DETECTED 03/01/24 07:27 Nasal Coronavir NL63 PCR NOT DETECTED 03/01/24 07:27 Nasal Coronavir OC43 PCR NOT DETECTED 03/01/24 07:27 Nasal Enterovir/Rhinovir PCR NOT DETECTED 03/01/24 07:27 Nasal Influenza B PCR NOT DETECTED 03/01/24 07:27 Nasal Influenza A PCR NOT DETECTED 03/01/24 07:27 Nasal Parainfluen 1 PCR NOT DETECTED 03/01/24 07:27 Nasal Parainfluen 2 PCR NOT DETECTED 03/01/24 07:27 Nasal Parainfluen 3 PCR NOT DETECTED 03/01/24 07:27 Nasal Parainfluen 4 PCR NOT DETECTED 03/01/24 07:27 Nasal RSV (PCR) NOT DETECTED 03/01/24 07:27 Nasal Screen MRSA (PCR) NEGATIVE (NEGATIVE) 03/01/24 11:50 Nasal B.pertussis DNA PCR NOT DETECTED 03/01/24 07:27 Nasal C.pneumoniae (PCR) NOT DETECTED 03/01/24 07:27 Maciel Human Metapneumo PCR NOT DETECTED 03/01/24 07:27 Nasal M.pneumoniae (PCR) NOT DETECTED 03/01/24 07:27 Nasal SARS-CoV-2 (PCR) NOT DETECTED 03/01/24 07:27 Urine Opiates Screen NEGATIVE (NEGATIVE) 03/01/24 07:09 Ur Buprenorphine Scrn NEGATIVE (NEGATIVE) 03/01/24 07:09 Ur Oxycodone Screen NEGATIVE (NEGATIVE) 03/01/24 07:09 Urine Methadone Screen NEGATIVE (NEGATIVE) 03/01/24 07:09 Ur Barbiturates Screen NEGATIVE (NEGATIVE) 03/01/24 07:09 Ur Tricyclics Screen NEGATIVE (NEGATIVE) 03/01/24 07:09 Ur Phencyclidine Scrn NEGATIVE (NEGATIVE) 03/01/24 07:09 Ur Amphetamine Screen NEGATIVE (NEGATIVE) 03/01/24 07:09 U Methamphetamines Scrn NEGATIVE (NEGATIVE) 03/01/24 07:09 U Benzodiazepines Scrn NEGATIVE (NEGATIVE) 03/01/24 07:09 Urine Cocaine Screen NEGATIVE (NEGATIVE) 03/01/24 07:09 U Cannabinoids Screen NEGATIVE (NEGATIVE) 03/01/24 07:09 Ur Drug Screen Comment CUTOFF CONC BELOW: 03/01/24 07:09 Serum Ketones MODERATE (NEGATIVE) H 03/01/24 05:05
[2024-03-04 23:16] LABS: MAGNESIUM 1.7 mg/dL (1.7-2.3)
[2024-03-05 04:32] LABS: HCT - HEMATOCRIT 29.1 % (37.0-47.0); MEAN CORPUSCULAR HEMOGLOBIN 31.3 pg (27.0-31.0); MEAN CORPUSCULAR HGB CONC 34.4 g/dL (32.0-36.0); MEAN CORPUSCULAR VOLUME 91.2 fL (81.0-99.0); MEAN PLATELET VOLUME 9.5 fL (7.9-10.8); RED BLOOD COUNT 3.19 10^6/uL (4.20-5.40); RED CELL DISTRIBUTION WIDTH 14.4 % (12.0-15.0); WHITE BLOOD COUNT 7.1 x10^3/uL (4.8-10.8)
[2024-03-05 04:54] LABS: MAGNESIUM 1.7 mg/dL (1.7-2.3)
[2024-03-05 05:00] LABS: CALCIUM 8.2 mg/dL (8.5-10.3); CREATININE 0.4 mg/dL (0.6-1.3); PHOSPHORUS 3.8 mg/dL (2.5-5.0); POTASSIUM 3.2 mmol/L (3.5-4.5)
[2024-03-05 05:01] LABS: CALCIUM, IONIZED 1.07 mmol/L (1.15-1.33); VBG PH 7.509 (7.31-7.41)
[2024-03-05] MEDS: POTASSIUM CHLOR 20 MEQ/100 ML 20 MEQ/100 ML BAG IV SCH (06:36)
[2024-03-05] MEDS: CALCIUM CARBONATE CHEW 500 MG TABLET PO SCH (06:36)
[2024-03-05] MEDS: MAGNESIUM OXIDE 400 MG TABLET PO ONE (06:37)
[2024-03-05] MEDS: POTASSIUM CHLORIDE 20 MEQ/15 ML UDC PO ONE (11:58)
[2024-03-05] MEDS: FLUCONAZOLE 100 MG TABLET PO SCH (16:37)
--- NOTE | 2024-03-05 21:11 | PROVIDER PROGRESS NOTE ---
Assessment/Plan - Problem List (1) DKA (diabetic ketoacidosis) Qualifiers: Diabetes mellitus type: type 2 Diabetes mellitus complication detail: without coma Qualified Code(s): E11.10 - Type 2 diabetes mellitus with ketoacidosis without coma Assessment/Plan: Profound acidosis has resolved. Anion gap has resolved. Sodium bicarb and have normalized. Insulin drip has been discontinued and treatment has been initiated with Lantus and sliding scale insulin. IV fluid has been discontinued. Continue to monitor electrolytes closely and replace as needed. (2) Type 1 Diabetes Mellitus Assessment/Plan: Patient continues to receive diabetic teaching with regards to determining her insulin dose and giving herself a subcutaneous insulin treatment. Continue long-acting and short acting insulin. (3) Disposition Assessment/Plan: Place electrolytes as patient continues to require hospitalization for diabetic teaching and electrolyte replacement. Anticipate discharge tomorrow. - Current Meds Current Meds: Current Medications Generic Name Dose Route Start Last Admin Trade Name Freq PRN Reason Stop Dose Admin Acetaminophen 650 mg 03/01/24 16:15 03/04/24 22:59 Acetaminophen 325 Mg Tablet PO 650 mg Q4HR PRN Administration Pain or Fever > 38C (100.4F) Benzonatate 100 mg 03/04/24 02:11 03/04/24 21:20 Benzonatate 100 Mg Capsule PO 100 mg TID PRN Administration Cough Calcium Carbonate/Glycine 500 mg 03/04/24 02:12 03/04/24 02:22 Calcium Carbonate Chew 500 Mg Tablet PO 500 mg BID PRN Administration Heartburn Fluconazole 150 mg 03/05/24 16:25 03/05/24 16:37 Fluconazole 100 Mg Tablet PO 150 mg DAILY LAURA Administration Heparin Sodium (Porcine) 5,000 unit 03/01/24 21:00 03/05/24 09:22 Heparin 5,000 Unit/Ml Vial SUBQ 5,000 unit BID LAURA Administration Insulin Glargine-yfgn 24 unit 03/04/24 10:50 03/04/24 20:56 Insulin Glargine-Yfgn 300 Unit/3 Ml Pen SUBQ 24 unit QPM LAURA Administration Insulin Human Lispro 5 unit 03/04/24 12:00 03/05/24 16:46 Insulin Lispro 300 Unit/3 Ml Pen SUBQ 5 unit TIDWM LAURA Administration Protocol Insulin Human Lispro 1 - 9 unit 03/04/24 12:00 03/05/24 16:47 Insulin Lispro 300 Unit/3 Ml Pen SUBQ 3 unit 0800,1200,1700,2100 LAURA Administration Protocol Pantoprazole Sodium 40 mg 03/02/24 12:00 03/05/24 06:36 Pantoprazole 40 Mg Tablet PO 40 mg QDAC LAURA Administration Sodium Chloride 10 ml 03/01/24 17:00 03/05/24 16:38 Sodium Chloride Flush 0.9% 10 Ml Syringe IVP 10 ml 0100,0900,1700 LAURA Administration Sodium Chloride 10 ml 03/01/24 10:48 03/05/24 09:52 Sodium Chloride Flush 0.9% 10 Ml Syringe IVP 10 ml PRN PRN Administration NEEDED PER PROVIDER ORDERS Throat Lozenges 1 lozenge 03/02/24 10:00 03/03/24 10:36 Benzocaine/Menthol Lozenge MM 1 lozenge Q2HR PRN Administration Throat pain - Lab Result Fish Bone Diagrams: 03/05/24 04:14 03/05/24 21:25 - Additional Planning My Orders: My Active Orders 03/05/24 16:25 Fluconazole [Diflucan] 150 mg PO DAILY 03/05/24 19:00 BMP - BASIC METABOLIC PANEL [CHEM] Routine Subjective - Subjective Patient Reports: Other (Alert. Reports she overall feels much better. She denies chest pain, shortness of breath and abdominal pain. She reports a yellow discharge from her vagina She has no other complaints at this time.) Objective Vital Signs: Vital Signs - 24 hr 03/04/24 03/04/24 03/05/24 22:00 23:00 00:00 Temperature 37.0 C 37 C Heart Rate [ 100 101 H 94 Monitoring electrodes] Respiratory 18 19 20 Rate Blood Pressure 113/75 117/77 110/80 [Right Brachial artery] O2 Saturation 98 97 96 03/05/24 03/05/24 03/05/24 01:00 02:00 03:00 Temperature Heart Rate [ 88 94 81 Monitoring electrodes] Respiratory 15 18 18 Rate Blood Pressure 105/63 103/63 110/63 [Right Brachial artery] O2 Saturation 96 97 96 03/05/24 03/05/24 03/05/24 04:00 05:00 06:00 Temperature 37 C 37 C Heart Rate [ 91 83 90 Monitoring electrodes] Respiratory 16 18 20 Rate Blood Pressure 95/57 L 116/72 108/68 [Right Brachial artery] O2 Saturation 96 98 96 03/05/24 03/05/24 03/05/24 07:00 07:58 09:00 Temperature 36.8 C Heart Rate [ 89 114 H 113 H Monitoring electrodes] Respiratory 14 12 17 Rate Blood Pressure 103/67 109/89 H 116/87 H [Right Brachial artery] O2 Saturation 96 98 100 03/05/24 03/05/24 10:00 14:00 Temperature Heart Rate [ 88 97 Monitoring electrodes] Respiratory 14 16 Rate Blood Pressure 118/77 110/69 [Right Brachial artery] O2 Saturation 100 99 Oxygen O2 Source Room air I&O (Last 24 Hrs): Intake and Output Totals x24h 03/03/24 03/04/24 03/05/24 23:59 23:59 23:59 Intake Total 8452.950 6153.90 4032.416 Output Total 2300 2900 1900 Balance 6152.950 3253.90 2132.416 General: Alert, Oriented x3, No acute distress Neck: No JVD Neuro: Alert, Non Focal Cardiovascular: Other (Positive S1-S2 no extra heart sounds.) Respiratory: Other (Good air exchange in all lung pedroza no wheezing no crackles) Abdomen: Other (Soft nontender nondistended positive bowel sounds) Extremities: No cyanosis Skin: No rashes - Results Results: Laboratory Results WBC 7.1 x10^3/uL (4.8-10.8) 03/05/24 04:14 RBC 3.19 10^6/uL (4.20-5.40) L 03/05/24 04:14 Hgb 10.0 g/dL (12.0-16.0) L 03/05/24 04:14 Hct 29.1 % (37.0-47.0) L 03/05/24 04:14 MCV 91.2 fL (81.0-99.0) 03/05/24 04:14 MCH 31.3 pg (27.0-31.0) H 03/05/24 04:14 MCHC 34.4 g/dL (32.0-36.0) 03/05/24 04:14 RDW 14.4 % (12.0-15.0) 03/05/24 04:14 Plt Count 235 10^3/uL (130-450) 03/05/24 04:14 MPV 9.5 fL (7.9-10.8) 03/05/24 04:14 Neut # (Auto) Not Reportable 03/03/24 03:05 Lymph # (Auto) Not Reportable 03/03/24 03:05 [place] # (Auto) Not Reportable 03/03/24 03:05 Eos # (Auto) Not Reportable 03/03/24 03:05 Baso # (Auto) Not Reportable 03/03/24 03:05 Absolute Nucleated RBC Not Reportable 03/03/24 03:05 Total Counted 100 03/03/24 03:05 Band Neuts % (Manual) 1 % (0-10) 03/03/24 03:05 Abnorm Lymph % (Manual) 0 % 03/03/24 03:05 Nucleated RBC % Not Reportable 03/03/24 03:05 Neutrophils # (Manual) 9.8 10^3/uL (1.5-6.6) H 03/03/24 03:05 Lymphocytes # (Manual) 1.1 10^3/uL (1.5-3.5) L 03/03/24 03:05 Monocytes # (Manual) 1.3 10^3/uL (0.0-1.0) H 03/03/24 03:05 Eosinophils # (Manual) 0.0 10^3/uL (0-0.7) 03/03/24 03:05 Basophils # (Manual) 0.0 10^3/uL (0-0.1) 03/03/24 03:05 Differential Comment MANUAL DIFFERENTIAL 03/03/24 03:05 Platelet Estimate NORMAL (130-450,000) (NORMAL) 03/03/24 03:05 RBC Morph Micro Appear NORMAL APPEARANCE (NORMAL) 03/03/24 03:05 PT 12.1 secs (9.9-12.6) 03/01/24 05:57 INR 1.1 (0.8-1.2) 03/01/24 05:57 D-Dimer > 1050.0 ng/mL (200.0-255.0) H 03/01/24 05:57 Bld Gas Analysis Time 0451 03/02/24 04:45 Sample Site LEFT RADIAL 03/02/24 04:45 ABG pH 7.19 (7.35-7.45) L* 03/02/24 04:45 ABG pCO2 22 mmHg (34-45) L* 03/02/24 04:45 ABG pO2 77 mmHg (80-100) L 03/02/24 04:45 ABG HCO3 8.3 mmol/L (22.0-26.0) L 03/02/24 04:45 ABG Total CO2 9.0 MMOL/L (21.0-29.0) L* 03/02/24 04:45 ABG O2 Saturation 97 % (94-98) 03/02/24 04:45 ABG Base Excess -17.9 mmol/L (-2.0-3.0) L 03/02/24 04:45 Robb Test POSITIVE 03/02/24 04:45 VBG pH 7.509 (7.31-7.41) H 03/05/24 04:14 VBG pCO2 27.7 mmHg (41-51) L 03/01/24 10:17 VBG pO2 43.1 mmHg (25-47) 03/01/24 10:17 VBG HCO3 4.0 mmol/L (23-28) L 03/01/24 10:17 VBG Total CO2 4.8 mmol/L (24-29) L 03/01/24 10:17 VBG O2 Saturation 76.8 % (60-80) 03/01/24 10:17 VBG Base Excess -30.9 mmol/L (-2 - +2) L 03/01/24 10:17 Ionized Calcium 1.07 mmol/L (1.15-1.33) L 03/05/24 04:14 Room Air YES 03/02/24 04:45 FiO2 21.00 03/02/24 04:45 Sodium 141 mmol/L (135-145) 03/05/24 04:14 Potassium 3.7 mmol/L (3.5-4.5) 03/05/24 11:00 Chloride 110 mmol/L (101-111) 03/05/24 04:14 Carbon Dioxide 26 mmol/L (21-32) 03/05/24 04:14 Anion Gap 5.0 (6-13) L 03/05/24 04:14 BUN 4 mg/dL (6-20) L 03/05/24 04:14 Creatinine 0.4 mg/dL (0.6-1.3) L 03/05/24 04:14 Estimated GFR (MDRD) 196 (>89) 03/05/24 04:14 Glucose 102 mg/dL (74-104) 03/05/24 04:14 POC Whole Bld Glucose 242 mg/dL (70 - 100) H 03/05/24 21:04 Estimat Average Glucose 289 mg/dL (70-100) H 03/04/24 04:54 Hemoglobin A1c % 11.7 % (4.27-6.07) H 03/04/24 04:54 Calcium 8.2 mg/dL (8.5-10.3) L 03/05/24 04:14 Phosphorus 3.8 mg/dL (2.5-5.0) 03/05/24 04:14 Magnesium 1.7 mg/dL (1.7-2.3) 03/05/24 04:14 Total Bilirubin 0.7 mg/dL (0.2-1.0) 03/03/24 03:05 Direct Bilirubin < 0.10 mg/dL (0.03-0.18) 03/03/24 03:05 AST 7 IU/L (10-42) L 03/03/24 03:05 ALT 8 IU/L (10-60) L 03/03/24 03:05 Alkaline Phosphatase 80 IU/L (42-121) 03/03/24 03:05 Total Creatine Kinase 80 IU/L (30-223) 03/01/24 06:05 Troponin I High Sens 6.5 ng/L (2.3-14.8) 03/01/24 05:20 Total Protein 6.0 g/dL (6.4-8.9) L 03/03/24 03:05 Albumin 3.4 g/dL (3.2-5.5) 03/03/24 03:05 Globulin 2.6 g/dL (2.1-4.2) 03/03/24 03:05 Albumin/Globulin Ratio 1.5 (1.0-2.2) 03/01/24 05:20 Serum HCG, Qual NEGATIVE 03/01/24 05:20 Urine Color LT. YELLOW 03/01/24 12:16 Urine Clarity CLEAR (CLEAR) 03/01/24 12:16 Urine pH 5.5 PH (5.0-7.5) 03/01/24 12:16 Ur Specific [place] 1.025 (1.002-1.030) 03/01/24 12:16 Urine Protein TRACE mg/dL (NEGATIVE) 03/01/24 12:16 Urine Glucose (UA) 500 mg/dL (NEGATIVE) H 03/01/24 12:16 Urine Ketones >=80 mg/dL (NEGATIVE) H 03/01/24 12:16 Urine Occult Blood SMALL (NEGATIVE) H 03/01/24 12:16 Urine Nitrite NEGATIVE (NEGATIVE) 03/01/24 12:16 Urine Bilirubin NEGATIVE (NEGATIVE) 03/01/24 12:16 Urine Urobilinogen 0.2 (NORMAL) E.U./dL (NORMAL) 03/01/24 12:16 Ur Leukocyte Esterase NEGATIVE (NEGATIVE) 03/01/24 12:16 Urine RBC 0-5 /HPF (0-5) 03/01/24 12:16 Urine WBC 6-10 /HPF (0-5) H 03/01/24 12:16 Ur Squamous Epith Cells FEW Squamous (<= Few) 03/01/24 12:16 Urine Bacteria Few /HPF (None Seen) 03/01/24 12:16 Ur Microscopic Review INDICATED 03/01/24 12:16 Urine Culture Comments NOT INDICATED 03/01/24 12:16 Urine HCG, Qual NEGATIVE 03/01/24 12:16 Nasal Adenovirus (PCR) NOT DETECTED 03/01/24 07:27 Nasal B. parapertussis DNA (PCR) NOT DETECTED 03/01/24 07:27 Nasal Coronavir 229E PCR NOT DETECTED 03/01/24 07:27 Nasal Coronavir HKU1 PCR NOT DETECTED 03/01/24 07:27 Nasal Coronavir NL63 PCR NOT DETECTED 03/01/24 07:27 Nasal Coronavir OC43 PCR NOT DETECTED 03/01/24 07:27 Nasal Enterovir/Rhinovir PCR NOT DETECTED 03/01/24 07:27 Nasal Influenza B PCR NOT DETECTED 03/01/24 07:27 Nasal Influenza A PCR NOT DETECTED 03/01/24 07:27 Nasal Parainfluen 1 PCR NOT DETECTED 03/01/24 07:27 Nasal Parainfluen 2 PCR NOT DETECTED 03/01/24 07:27 Nasal Parainfluen 3 PCR NOT DETECTED 03/01/24 07:27 Nasal Parainfluen 4 PCR NOT DETECTED 03/01/24 07:27 Nasal RSV (PCR) NOT DETECTED 03/01/24 07:27 Nasal Screen MRSA (PCR) NEGATIVE (NEGATIVE) 03/01/24 11:50 Nasal B.pertussis DNA PCR NOT DETECTED 03/01/24 07:27 Nasal C.pneumoniae (PCR) NOT DETECTED 03/01/24 07:27 Maciel Human Metapneumo PCR NOT DETECTED 03/01/24 07:27 Nasal M.pneumoniae (PCR) NOT DETECTED 03/01/24 07:27 Nasal SARS-CoV-2 (PCR) NOT DETECTED 03/01/24 07:27 Urine Opiates Screen NEGATIVE (NEGATIVE) 03/01/24 07:09 Ur Buprenorphine Scrn NEGATIVE (NEGATIVE) 03/01/24 07:09 Ur Oxycodone Screen NEGATIVE (NEGATIVE) 03/01/24 07:09 Urine Methadone Screen NEGATIVE (NEGATIVE) 03/01/24 07:09 Ur Barbiturates Screen NEGATIVE (NEGATIVE) 03/01/24 07:09 Ur Tricyclics Screen NEGATIVE (NEGATIVE) 03/01/24 07:09 Ur Phencyclidine Scrn NEGATIVE (NEGATIVE) 03/01/24 07:09 Ur Amphetamine Screen NEGATIVE (NEGATIVE) 03/01/24 07:09 U Methamphetamines Scrn NEGATIVE (NEGATIVE) 03/01/24 07:09 U Benzodiazepines Scrn NEGATIVE (NEGATIVE) 03/01/24 07:09 Urine Cocaine Screen NEGATIVE (NEGATIVE) 03/01/24 07:09 U Cannabinoids Screen NEGATIVE (NEGATIVE) 03/01/24 07:09 Ur Drug Screen Comment CUTOFF CONC BELOW: 03/01/24 07:09 Serum Ketones MODERATE (NEGATIVE) H 03/01/24 05:05
[2024-03-05] MEDS: INSULIN LISPRO 300 UNIT/3 ML PEN SUBQ SCH (21:29)
[2024-03-05 21:45] LABS: CALCIUM 8.5 mg/dL (8.5-10.3); CREATININE 0.6 mg/dL (0.6-1.3)
[2024-03-06 08:36] VITALS: BP 120/69; O2SAT 100
[2024-03-06 10:09] LABS: MAGNESIUM 1.7 mg/dL (1.7-2.3)
[2024-03-06 10:15] LABS: CALCIUM 8.6 mg/dL (8.5-10.3); CREATININE 0.5 mg/dL (0.6-1.3); PHOSPHORUS 4.1 mg/dL (2.5-5.0); POTASSIUM 4.1 mmol/L (3.5-4.5)
--- NOTE | 2024-03-06 11:24 | Discharge Plan ---
Discharge Plan Problem Reviewed?: Yes Disposition: Home, Self Care Condition: Stable Prescriptions: Blood-Glucose Meter [Glucometer] 1 each [facility] #1 each Blood Sugar Diagnostic [Glucometer Strips] 1 each [facility] #360 strip Insulin Lispro [Humalog Kwikpen U-100] 5 unit SUBQ TIDWM #3 ml Insulin Lispro [Humalog Kwikpen U-100] 2 - 10 unit SUBQ 0800,1200,1700,2100 #3 ml Insulin Glargine [Lantus Solostar] 24 unit [id number] DAILY #3 ml Diet: Diabetic Activity Restrictions: No Restrictions Shower Restrictions: Yes Driving Restrictions: Yes Instruction Topics: Insulin Lispro injection, Insulin Glargine injection, Hyperglycemia, Hypoglycemia, Diabetes Carbs, Diabetes Sick Day Plan, Diabetes Manage A1C Test, Diabetic Ketoacidosis Health Concerns: History of Present Illness: Aime Galdamez is a 23-year-old woman with a history of type 2 diabetes mellitus. Patient reports she complained of shortness of breath while driving from her home to the [facility]. She reports she recently ran a marathon. Laboratory workup upon arrival revealed an anion gap of 24 with a creatinine of 0.8 and a serum glucose of 432. Treatment was initiated in the emergency room with IV fluids and insulin drip. Patient complaining of diffuse pain. She denies any fevers and chills. Hospital Course: Aime Galdamez was admitted to the intensive care unit due to her severe diabetic ketoacidosis. She was treated with aggressive IV fluid replacement, electrolyte replacement and an insulin drip. Anion gap acidosis resolved on hospital day #2 and patient was transitioned from an insulin drip to glargine and sliding scale insulin on hospital day #3. On hospital day #4 she continued to have abnormal electrolytes and she received diabetic teaching. On hospital day #5 her electrolytes have normalized. And she is stable for discharge to home. Plan of Treatment: 1. Take all medications as prescribed. 2. Please arrange for follow-up with a primary care provider. Please call [facility] to arrange for a primary care provider. Care Goals: Goal of care is to improve serum glucose control and to avoid further episodes of diabetic ketoacidosis. Assessment: (1) DKA (diabetic ketoacidosis) Qualifiers: Diabetes mellitus type: type 2 Diabetes mellitus complication detail: without coma Qualified Code(s): E11.10 - Type 2 diabetes mellitus with ketoacidosis without coma Assessment/Plan: Resolved (2) Type 1 Diabetes Mellitus Assessment/Plan: Aime has received diabetic teaching prior to discharge. Recommend she obtain more diabetic teaching in her hometown of [place]. No Smoking: If you smoke, Please STOP! Call for help.
--- NOTE | 2024-03-06 11:24 | DISCHARGE SUMMARY ---
Discharge Summary Admit Date: 03/01/24 Discharge Date: 03/06/24 Discharging Provider: Vj Starks MD Primary Care Provider: No PCP Condition at Discharge: Stable Discharge Disposition: Home, Self Care Discharge Facility Name: [facility] - DIAGNOSES Admission Diagnoses: (1) DKA (diabetic ketoacidosis) Discharge Diagnoses with Status of Each Condition: (1) DKA (diabetic ketoacidosis) (2) Type 1 Diabetes Mellitus - HPI History of Present Illness: Aime Galdamez is a 23-year-old woman with a history of type 2 diabetes mellitus. Patient reports she complained of shortness of breath while driving from her home to the [facility]. She reports she recently ran a marathon. Laboratory workup upon arrival revealed an anion gap of 24 with a creatinine of 0.8 and a serum glucose of 432. Treatment was initiated in the emergency room with IV fluids and insulin drip. Patient complaining of diffuse pain. She denies any fevers and chills. - HOSPITAL COURSE Hospital Course: Aime Galdamez was admitted to the intensive care unit due to her severe diabetic ketoacidosis. She was treated with aggressive IV fluid replacement, electrolyte replacement and an insulin drip. Anion gap acidosis resolved on hospital day #2 and patient was transitioned from an insulin drip to glargine and sliding scale insulin on hospital day #3. On hospital day #4 she continued to have abnormal electrolytes and she received diabetic teaching. On hospital day #5 her electrolytes have normalized. And she is stable for discharge to home. - ALLERGIES Allergies/Adverse Reactions: Allergies Allergy/AdvReac Type Severity Reaction Status Date / Time No Known Drug Allergies Allergy Verified 03/01/24 05:21 - MEDICATIONS Home Medications: Ambulatory Orders Medication Instructions Recorded Confirmed Blood Sugar Diagnostic [Glucometer 1 each [facility] #360 strip 03/06/24 Strips] Blood-Glucose Meter [Glucometer] 1 each [facility] #1 each 03/06/24 Insulin Glargine [Lantus Solostar] 24 unit [id number] DAILY #3 ml 03/06/24 Insulin Glargine [Lantus Solostar] 24 unit [id number] DAILY #3 ml 03/06/24 Insulin Lispro [Humalog Kwikpen 2 - 10 unit SUBQ 03/06/24 U-100] 0800,1200,1700,2100 #3 ml Insulin Lispro [Humalog Kwikpen 5 unit SUBQ TIDWM #3 ml 03/06/24 U-100] - PHYSICAL EXAM AT DISCHARGE General Appearance: positive: No acute distress, Alert Eyes Bilateral: positive: Conjunctivae nml, No scleral icterus Neck: positive: No JVD, Trachea midline Respiratory: positive: Other (Good air exchange in all lung pedroza no wheezing no crackles.) Cardiovascular: positive: Other (Positive S1-S2 no extra heart sounds.) Abdomen: positive: Other (Soft nontender nondistended positive bowel sounds) Skin: positive: No rash Extremities: positive: No pedal edema - LABS Result Diagrams: 03/05/24 04:14 03/06/24 09:45 - TIME SPENT Time Spent in Discharge (Minutes): 32 (32 minutes was spent coordinating discharge for patient, educating her on her long-acting and short acting insulin and sliding scale.)
[2024-03-06] MEDS: MAGNESIUM OXIDE 400 MG TABLET PO SCH (12:25)
== END 2024-03-06 13:15 | disposition home or self-care (01) | DRG 639 ==
LOC: ED 05:09 → INTOOBSV 10:48 → ICU 10:48 → OBSVTOIN 10:49
PROVIDERS: ADMIT Internal Medicine; ATTEND Internal Medicine
PROC: 02HV33Z Insertion of Infusion Device into Superior Vena Cava, Percutaneous Approach (ICD-10-PCS; principal; 2024-03-01)
DX: E10.10 Type 1 diabetes mellitus with ketoacidosis without coma (principal); R06.00 Dyspnea, unspecified; E87.6 Hypokalemia; E83.39 Other disorders of phosphorus metabolism; E83.42 Hypomagnesemia; Z11.52 Encounter for screening for COVID-19; Z32.02 Encounter for pregnancy test, result negative
CPT/HCPCS: 36415; 36600; 71045; 71275; 80048; 80053; 80076; 80306; 81001; 81025; 82009; 82330; 82550; 82803; 82947; 83036; 83735; 84100; 84132; 84484; 84703; 85025; 85027; 85379; 85610; 87150; 87633; 93005; 96361; 96365; 96366; 96368; 96375; 99291; A9270; C1751; J1815; J2060; J7120; Q9967; 81003; 87086